=== PATIENT | female | born 1965 | race African-American/Black ===

== ENCOUNTER 2016-06-14 14:41 | Inpatient (IN) ==
[2016-06-14] MEDS ORDERED: MORPHINE 2 MG/1 ML SYRINGE IV PRN (14:45)
[2016-06-14] MEDS ORDERED: ACETAMINOPHEN 325 MG TABLET PO PRN ×2 (14:45)
[2016-06-14] MEDS ORDERED: DOCUSATE SODIUM 100 MG CAPSULE PO PRN (14:45)
[2016-06-14] MEDS: SODIUM CHLORIDE 0.9% 1,000 ML IV SCH (17:15)
[2016-06-14] MEDS ORDERED: PANTOPRAZOLE 40 MG VIAL IV ONE (17:43)
[2016-06-14] MEDS ORDERED: SODIUM CHLORIDE 0.9% 250 ML IV PRN (17:43)
--- NOTE | 2016-06-14 17:48 | Hospitalist History & Physical ---
Assessment and Plan - Time spent with patient Time spent with patient: Greater than 30 minutes (1) Acute blood loss anemia Status: Acute Assessment and plan: Patient has acute blood loss anemia secondary to GI bleed. Have consulted GI, begun IV proton pump inhibitor, and will transfuse to achieve a hemoglobin of 9- 10 with her underlying coronary disease. Current Visit: Yes (2) GI bleed Status: Acute Assessment and plan: Patient has evidence of upper GI bleed with acute blood loss anemia. She will be placed in the ICU and transfused to achieve a hemoglobin of 9-10. Will begin IV proton pump inhibitors and consult gastroenterology for possible upper endoscopy. Current Visit: Yes (3) UTI (urinary tract infection) Status: Acute Assessment and plan: Patient has evidence of UTI and [facility] We will continue for now and await cultures. Current Visit: Yes (4) Chest pain Status: Acute Assessment and plan: Patient has chest pain with recent coronary stenting. This is likely secondary to demand secondary to her severe blood loss anemia. Will transfuse, consult cardiology, obtain serial cardiac isoenzymes and EKGs. Current Visit: No (5) Diabetes Status: Chronic Assessment and plan: Patient has diabetes mellitus. Will continue her routine insulin dose with Accu -Cheks and sliding scale. Current Visit: No (6) Lupus Status: Chronic Assessment and plan: Patient has lupus and is on chronic corticosteroids. I will hold her n.p.o. for now and provide IV corticosteroids. Current Visit: No History of Present Illness Chief complaint: Chest pain History of present illness: Ms. Yeager is a 51 year old -[place] female who had coronary stent placement last week by Dr. Trent Major. She states that last evening she began having some anterior chest tightness. She has had some associated shortness of breath. She did note having some dark tarry stools and some midepigastric discomfort this morning. She has had some dizziness with standing and some shortness of breath with minimal exertion. There is been no nausea or vomiting. She was seen at an [facility] and evaluated and noted to have no acute EKG changes or elevation of cardiac isoenzymes however she was severely anemic with a hemoglobin of approximately 5. She was transferred here for further care. Home Medications Medication Instructions Recorded Confirmed Type Aspirin [Ecotrin] 325 mg PO DAILY 06/11/16 06/11/16 History Dicyclomine Cap/Tab [Bentyl 20 mg PO QID PRN 06/11/16 06/11/16 History Cap/Tab] Esomeprazole Magnesium [Nexium] 40 mg PO DAILY 06/11/16 06/11/16 History Glipizide [Glipizide Xl] 10 mg PO BID 06/11/16 06/11/16 History Hydromorphone HCl 8 mg PO BID PRN 06/11/16 06/11/16 History Hydroxychloroquine [Plaquenil] 200 mg PO BID 06/11/16 06/11/16 History Insulin Glargine [Lantus] 20 unit SUBCUT BEDTIME 06/11/16 06/11/16 History Levocetirizine Dihydrochloride 5 mg PO BEDTIME 06/11/16 06/11/16 History [Xyzal] Nicotine 14 mg/24 Hr Patch 1 patch TRANSDERM DAILY 06/11/16 06/11/16 History [Nicoderm CQ 14 mg/24 hr Patch] amLODIPine [Norvasc] 10 mg PO DAILY 06/11/16 06/11/16 History predniSONE TAB [PredniSONE] 10 mg PO BID 06/11/16 06/11/16 History Carvedilol [Coreg] 25 mg PO BID W/MEALS #60 tablet 06/12/16 Rx Losartan [Cozaar] 50 mg PO DAILY #30 tablet 06/12/16 Rx Ticagrelor [Brilinta] 90 mg PO BID #60 tablet 06/12/16 Rx Allergies Allergy/AdvReac Type Severity Reaction Status Date / Time No Known Allergies Allergy Verified 06/11/16 00:44 Medical,Surgical,& Family Hx - Medical History Cardio: History of: Cardiac Dysrhythmia, CHF, CAD, Hypertension Psychological: History of: Anxiety Disorders Endocrine: History of: Diabetes Mellitus (IDDM) Rheumatology: History of;: Systemic Lupus Erythematosus Respiratory: History of: Asthma, COPD - Surgical History Cardiac Surgeries: Sugical HX of: Cardiac Catheterization Abdominal Surgeries: Surgical HX of: Appendectomy Reproductive Surgeries: Surgical HX of;: Hysterectomy Orthopedic Surgeries: Surgical HX of;: Orthopedic Surgery - Family History Family History: Reports;: Family Cancer, Family Diabetes - Social History Smoking Status: Former smoker Frequency of Alcohol Use: None Type of Drug Use: None 12 point system: reviewed and no additional remarkable complaints except as stated Exam - Constitutional General appearance: mild distress - Head Head exam: Present: normocephalic, atraumatic - Eye Eye exam: Present: EOMI Pupils: Present: NAVJOT - ENT ENT exam: Present: normal oropharynx - Neck Neck exam: Present: normal inspection. Absent: lymphadenopathy, meningismus, tenderness, thyromegaly - Respiratory Respiratory exam: Present: clear to auscultation bilaterally. Absent: rales, rhonchi, wheezes - Cardiovascular Cardiovascular exam: Present: regular rate and rhythm, tachycardia. Absent: systolic murmur - GI/Abdominal GI/Abdominal exam: Present: normal bowel sounds, distended, tenderness ( Epigastric tenderness), soft. Absent: mass, rebound - Extremities Exam Extremities exam: Absent: calf tenderness, edema - Back Exam Back exam: Present: normal inspection - Neurological Exam Neurological exam: Present: alert, oriented X3, CN II-XII intact. Absent: motor sensory deficit - Psychiatric Psychiatric exam: Present: normal affect, normal mood. Absent: agitated, anxious - Skin Skin exam: Present: warm, dry. Absent: rash Results - Labs Lab Results: I have reviewed the past 24 hour labs Labs: Lab and radiologic data have been completely reviewed from the outlying hospital. Quality Measures - VTE Contraindication to Pharmacological VTE Prophylaxis: Already on Theraputic Agent , No Prophylaxis Needed
[2016-06-14] MEDS ORDERED: DEXTROSE 50% 25 GM/50 ML VIAL IV PRN (17:53)
[2016-06-14] MEDS ORDERED: GLUCAGON 1 MG VIAL IM PRN (17:53)
--- NOTE | 2016-06-14 18:25 | Cardiology Consult Note ---
Assessment and Plan - Time spent with patient Time spent with patient: Greater than 30 minutes Time spent discussing smoking cessation with patient: more than 10 minutes (1) Acute blood loss anemia Status: Acute Assessment and plan: Given she has black tarry stool, is most like an upper GI bleed. That is in spite of being on Nexium, presumably, at home. It probably is exacerbated by her Brilinta and aspirin, but these are important medications to use after stent is placed. Her chest pressure is most likely due to the anemia not due to other ischemia-- I doubt the stent has closed off or is causing problems at this time Plan/recommendation: Admit to ICU. I gave agree with considering giving blood. We will try to get hematocrit above 30. Above 30, I doubt that he will she will have this chest pain or dyspnea on exertion or even her near syncopal episode. If she does, rate we can reassess. For now, we have no choice but to hold the Brilinta and aspirin. Also will hold any medication which will lower her blood pressure. Agree with GI workup. They may proceed with upper and lower scope when needed. Cardiac isoenzymes. EKG every morning 3. I discussed with the patient the benefits of staying off tobacco/nicotine, the problems with restarting it, and options of treatment. The patient plans to continue to abstain from tobacco use. As soon as possible, we will try to get her back on the aspirin and Brilinta. If not both at least on aspirin. Prognosis is guarded with having to interrupt the antiplatelet therapy. Thank you for allowing me to participate in this patient's care Current Visit: Yes (2) Cigarette smoker Status: Acute Current Visit: Yes (3) Hypotension Status: Acute Current Visit: Yes (4) GI bleed Status: Acute Current Visit: Yes (5) UTI (urinary tract infection) Status: Acute Current Visit: Yes (6) Chest pain Status: Acute Current Visit: No (7) Status post insertion of drug-eluting stent into right coronary artery for coronary artery disease Status: Acute Current Visit: No (8) Diabetes Status: Chronic Current Visit: No (9) Lupus Status: Chronic Current Visit: No History of Present Illness - Data of Consult Patient: known to practice within the last 3 years Consult date: 06/14/16 Requesting Physician: Kris Patel - Consult Narrative Reason for consult: Evaluate chest pain, recent coronary artery stent History of present illness: Ms. Yeager is a 51 year old female The patient underwent cath last week. She was found to have a high-grade stenosis of the right coronary. She will underwent stenting with a 2.25 x 8 mm science stent. She did well. She tended towards hypotension so not much medication was given. She was discharged on Brilinta and aspirin . She went home on 12 June.. Today, she came back to the emergency room at [facility] in [facility]. Labs were checked. Her troponins were decreasing. Her hematocrit was about 15 mg percent, which is lower than when she left.. She is feeling lightheaded. Her blood pressure was low. She was sent here for evaluation. I was asked see her. She was having some chest pain but is slightly different from chest pain she had when she had her stent done. Is a slight pressure but not the same. Has dyspnea on exertion. Has orthopnea and PND. No edema, palpitations, syncope, cough wheezing or phlegm. She did notice some black tarry stools. Also blood pressures been low lately. She has continued not smoke for last 2 weeks. He says she want to continue off cigarettes. She has bilateral eye iritis. Lupus/smoker/tendency towards hypotension CC: Beverly Rivera MD - Home Medications and Allergies Home Medications: Home Medications Medication Instructions Recorded Confirmed Type Aspirin [Ecotrin] 325 mg PO DAILY 06/11/16 06/11/16 History Dicyclomine Cap/Tab [Bentyl 20 mg PO QID PRN 06/11/16 06/11/16 History Cap/Tab] Esomeprazole Magnesium [Nexium] 40 mg PO DAILY 06/11/16 06/11/16 History Glipizide [Glipizide Xl] 10 mg PO BID 06/11/16 06/11/16 History Hydromorphone HCl 8 mg PO BID PRN 06/11/16 06/11/16 History Hydroxychloroquine [Plaquenil] 200 mg PO BID 06/11/16 06/11/16 History Insulin Glargine [Lantus] 20 unit SUBCUT BEDTIME 06/11/16 06/11/16 History Levocetirizine Dihydrochloride 5 mg PO BEDTIME 06/11/16 06/11/16 History [Xyzal] Nicotine 14 mg/24 Hr Patch 1 patch TRANSDERM DAILY 06/11/16 06/11/16 History [Nicoderm CQ 14 mg/24 hr Patch] amLODIPine [Norvasc] 10 mg PO DAILY 06/11/16 06/11/16 History predniSONE TAB [PredniSONE] 10 mg PO BID 06/11/16 06/11/16 History Carvedilol [Coreg] 25 mg PO BID W/MEALS #60 tablet 06/12/16 Rx Losartan [Cozaar] 50 mg PO DAILY #30 tablet 06/12/16 Rx Ticagrelor [Brilinta] 90 mg PO BID #60 tablet 06/12/16 Rx Allergies/Adverse Reactions: Allergies Allergy/AdvReac Type Severity Reaction Status Date / Time No Known Allergies Allergy Verified 06/11/16 00:44 12 point system: reviewed and no additional remarkable complaints except as stated (A 12 point review of systems is negative except for as mentioned in HPI. ) Medical,Surgical,& Family Hx - Medical History Cardio: History of: Cardiac Dysrhythmia, CHF, CAD, Hypertension Psychological: History of: Anxiety Disorders Endocrine: History of: Diabetes Mellitus (IDDM) Rheumatology: History of;: Systemic Lupus Erythematosus Respiratory: History of: Asthma, COPD - Surgical History Cardiac Surgeries: Sugical HX of: Cardiac Catheterization Abdominal Surgeries: Surgical HX of: Appendectomy Reproductive Surgeries: Surgical HX of;: Hysterectomy Orthopedic Surgeries: Surgical HX of;: Orthopedic Surgery - Family History Family History: Reports;: Family Cancer, Family Diabetes - Social History Smoking Status: Former smoker Have you smoked in the last 12 months: Yes Time spent discussing smoking cessation with patient: 3 to 10 minutes Frequency of Alcohol Use: None Type of Drug Use: None Functional capacity: independent ambulation Physical Examination Vital Signs Temp Pulse Resp BP Pulse Ox 98.6 F 92 H 18 87/66 100 06/14/16 17:05 06/14/16 17:05 06/14/16 17:05 06/14/16 17:05 06/14/16 17:05 Other: HEENT: Pupils equal, reactive to light and accommodation Neck: NoJVD or bruit Lungs clear to auscultation Heart: Regular rhythm rate with normal S1 and S2. Apical S4, 2/6 systolic ejection murmur along left lower sternal border. Abdomen: No hepatosplenomegaly Spine/extremities: No clubbing, cyanosis, or edema Neuro: Nonfocal Psych: No depression or anxiety Right groin puncture site was well-healed. Other foot pulses are good/normal. Result/EKG - Labs Lab Results: I have reviewed the past 24 hour labs Labs: I reviewed her labs from [facility]. Her hematocrit is lower as is her troponin. Quality Measures - VTE Deep Vein Thrombosis/Pulmonary Embolism Present on Admission: No Contraindication to Pharmacological VTE Prophylaxis: Already on Theraputic Agent , No Prophylaxis Needed
--- NOTE | 2016-06-14 19:35 | Event Note ---
Procedure note Called for central line placement for IV access in a patient requiring transfusion of 2 units of packed red blood cells. Ms. art was admitted with acute blood loss anemia secondary to acute hemorrhage thought to be upper gastrointestinal in origin. She is on blood thinners. The patient was seen and examined. The site was marked. A timeout was taken. The patient's identity, procedure, consent and location were identified. The patient was prepped and draped in sterile fashion. Local anesthesia was given with 1% lidocaine plain. The internal jugular vein was accessed and the guide wire placed without difficulty. After using the tissue dilator, the triple lumen catheter was placed over the wire and the wire removed intact. All ports were flushed with normal saline and functioned well. The central line was secured with the enclosed suture. A chest x-ray was ordered to confirm placement. The patient tolerated the procedure well. The nurse will place the appropriate dressing according to the hospital protocols.
[2016-06-14] MEDS: methylPREDNISolone SOD SUC 40 MG/1 ML VIAL IV SCH (19:45)
[2016-06-14] MEDS: PANTOPRAZOLE INJ 200 MG in SODIUM CHLORIDE 0.9% 250 ML IV SCH (19:45)
[2016-06-14] MEDS: cefTRIAXone 1,000 MG in SODIUM CHLORIDE 0.9% 100 ML IV SCH (19:46)
[2016-06-14] MEDS: INSULIN REGULAR 100 UNIT/ML SUBCUT SCH (19:46)
--- NOTE | 2016-06-14 19:48 | XRay Report ---
XR chest 1V portable Indication: Line placement Comparison: Chest x-ray dated June 11, 2016 Technique: Single frontal view of the chest Findings: Right-sided central venous catheter tip projects over the distal SVC. Cardiomediastinal silhouette is stable in configuration. No focal consolidation, pleural effusion, or pneumothorax. Osseous and surrounding soft tissue structures appear grossly unchanged. IMPRESSION: No acute cardiopulmonary process demonstrated. PROCEDURE INTERPRETED AT [facility] DEPARTMENT OF RADIOLOGY Final Report Signed by: Dr Frederick Howard
[2016-06-14 20:11] LABS: Hematocrit 14.3 VOL% (35.7-47.0); Hemoglobin 4.6 GM/DL (12.0-16.0)
[2016-06-14] MEDS ORDERED: INSULIN GLARGINE 100 UNIT/ML SUBCUT SCH (21:00)
--- NOTE | 2016-06-14 21:30 | EKG Report ---
Stationary ECG Study [facility] Test Date: 06/14/2016 9:30:25 PM Pat Name: MIN HOGAN Department: Room: 112 Gender: F [employer]: LV : 1965 Requested by: Ruben Verduzco Order Number: [id number] Reading MD: SAHARA HERNANDES Intervals [place] Rate: 99 P: 65 MD: 150 QRS: 57 QRSD: 81 T: -23 QT: 330 QTc: 386 Interpretive Statements SINUS RHYTHM NONSPECIFIC T-WAVE ABNORMALITY Electronically Signed On 06-15-16 06:32:42 CDT by SAHARA HERNANDES [email or web address]
[2016-06-14] MEDS: HYDROXYCHLOROQUINE 200 MG TABLET PO SCH (22:13)
--- NOTE | 2016-06-15 00:26 | EKG Report ---
Stationary ECG Study [facility] Test Date: 06/15/2016 12:26:41 AM Pat Name: MIN HOGAN Department: Room: 112 Gender: F [employer]: [place] : 1965 Requested by: Ruben Verduzco Order Number: [id number] Reading MD: SAHARA HERNANDES Intervals [place] Rate: 91 P: 61 NC: 161 QRS: 69 QRSD: 81 T: -65 QT: 343 QTc: 392 Interpretive Statements SINUS RHYTHM MODERATE T-WAVE ABNORMALITY, CONSIDER LATERAL ISCHEMIA Electronically Signed On 06-15-16 06:33:39 CDT by SAHARA HERNANDES [id number]
[2016-06-15] MEDS: INSULIN REGULAR 100 UNIT/ML SUBCUT SCH ×4 (00:44→19:32)
[2016-06-15] MEDS: SODIUM CHLORIDE 0.9% 1,000 ML IV SCH ×3 (02:12→15:01)
[2016-06-15 04:12] LABS: Basophils % 0.1 % (0.0-0.8); Hematocrit 26.4 VOL% (35.7-47.0); Hemoglobin 8.3 GM/DL (12.0-16.0); Immature Granulocytes Absolute 0.15 #; Lymphocytes # 1.2 10*3/uL (1.4-4.0); Lymphocytes % 8.4 % (21.3-54.2); Mean Corpuscular HGB Conc 31.4 GM/DL (32-36); Mean Corpuscular Hemoglobin 29 PG (27-34); Mean Platelet Volume 10.3 FL (9.6-12.0); Monocytes # 0.3 10*3/uL (0.11-0.8); Monocytes % 1.7 % (1.7-12.7); Neutrophils % 88.8 % (38.7-73.9); Platelet Count 147 T/CUMM (130-400); Red Blood Count 2.87 MC/CUMM (3.8-5.5); Red Cell Distribution Width 14.2 % (9.3-17.3); White Blood Count 14.7 T/CUMM (4-12)
[2016-06-15 04:49] LABS: Calcium 7.9 MG/DL (8.5-10.1); Magnesium 1.7 MG/DL (1.8-2.4); Osmolality,Calculated 310.1 MOS/KG (273-304); Potassium 4.4 MMOL/L (3.5-5.1)
[2016-06-15 04:54] LABS: CKMB % 10.2 %; Troponin I Only 0.057 NG/ML (0.00-0.045)
[2016-06-15] MEDS: methylPREDNISolone SOD SUC 40 MG/1 ML VIAL IV SCH ×2 (06:07→18:00)
--- NOTE | 2016-06-15 06:29 | Gastrointestinal Consult Note ---
Assessment and Plan (1) Gastrointestinal hemorrhage with melena Status: Acute Assessment and plan: This patient has recent stent placement for right coronary artery disease. She was released on a combination of aspirin and Brilinta and developed melena as an outpatient with hematocrit drop from 26% to 14.6%. This being said, the patient also had periumbilical pain and diarrhea prior to coming in with a weight loss of some 30 pounds even prior to stent placement. I am concerned that there may be more than 1 source of bleeding in this patient--we will probably want to follow the upper endoscopy with a colonoscopy on 06/16/16 given the above concerns. Differential diagnosis considering the patient has dysphasia or several including esophageal and gastric cancer but also esophagitis, gastritis, peptic ulcer disease, duodenitis and sprue. She likely has some anemia secondary to chronic disease with her lupus as well. We will proceed with upper endoscopy today in order to evaluate that portion of her GI tract and follow this with colonoscopy tomorrow as mentioned. Risks of the procedure include but are not limited to: Bleeding, infection, perforation, cardiac and pulmonary compromise with cardiac difficulties being higher now that she has been stented and is off of anticoagulation. The patient understands and is willing to proceed. Current Visit: Yes (2) Dysphagia Status: Acute Assessment and plan: Patient states that food gets stuck in her distal esophagus and if we discover a stricture we will likely dilate in order to ensure that she has good swallowing capabilities in the future now that she is off of anticoagulation for the short-term. If there is esophageal cancer we will likely take biopsies and refer for appropriate treatment. Current Visit: Yes (3) Periumbilical pain Status: Acute Assessment and plan: The patient has been having periumbilical pain for over a month and has had a 30 pound weight loss during that period as well. She has been told that she has diverticulosis in the past which probably has little bearing on her current situation. She may have C. difficile or some other type of colitis with her may be ischemic colitis especially given her likely propensity to her vascular difficulties with her lupus. We will likely proceed with colonoscopy tomorrow to follow the upper endoscopy today. Hopefully this will be normal. She is 1 year out from needing screening anyway. Current Visit: Yes (4) Diarrhea Status: Acute Assessment and plan: I am going to be checking the patient for C. difficile, fecal white blood cells and standard stool cultures to see if we can find a source for this diarrhea. With 3-5 bowel movements per day this may simply be irritable bowel syndrome. Ischemic colitis remains in the differential particularly given the current anemia and lupus history. Current Visit: Yes History of Present Illness Chief complaint: Melena and decr. HCT 14.3/4.6, dysphagia, reflux, nausea/ vomiting History of present illness: Ms. Yeager is a 51 year old female who has a history of a 30 pound weight loss over the last 1 month with nausea and vomiting as well as some dysphasia prior to coming in with atypical chest pain for right coronary lesion that required stenting by Dr. Major on 06/11/16. The patient has a history of lupus and went home on a combination of Ecotrin/Brilinta/prednisone/Plaquenil and was also taking NicoDerm for her underlying tobacco addiction. Tuesday evening one day prior to her admission she became quite lightheaded and had 2 black stools, presenting yesterday with more chest pain and extreme anemia with hematocrit down to 14.3% with a hemoglobin of 4.6 g/dL. In addition the patient's BUN and creatinine were 43 and 1.3. She knows that she has diverticulosis but has never undergone colonoscopy or EGD in the past. She is having reflux for many years and this is characterized as being quite severe. She does have some abdominal pain in the periumbilical region she grades as being 9 out of 10 at times with a crampy achy sort of character and has noted diarrhea since 05/27/16 with 3-5 bowel movements per day. She does not have a history of sick contacts. She has had nausea and vomiting with clear emesis but no coffee grounds. She does experience dysphagia frequently with food getting stuck in the lower esophagus, usually on a weekly basis. She typically takes Nexium before bedtime at night to help deal with the reflux which she again characterized as being severe. Her primary doctor is Dr. Cheryl Marroquin. She does not typically imbibe in alcohol, she has no history of IV drug use. She takes a full aspirin each day as her usual anticoagulation aside from the new addition of Brilinta since her cardiac catheterization. Home Medications Medication Instructions Recorded Confirmed Type Aspirin [Ecotrin] 325 mg PO DAILY 06/11/16 06/11/16 History Dicyclomine Cap/Tab [Bentyl 20 mg PO QID PRN 06/11/16 06/11/16 History Cap/Tab] Esomeprazole Magnesium [Nexium] 40 mg PO DAILY 06/11/16 06/11/16 History Glipizide [Glipizide Xl] 10 mg PO BID 06/11/16 06/11/16 History Hydromorphone HCl 8 mg PO BID PRN 06/11/16 06/11/16 History Hydroxychloroquine [Plaquenil] 200 mg PO BID 06/11/16 06/11/16 History Insulin Glargine [Lantus] 20 unit SUBCUT BEDTIME 06/11/16 06/11/16 History Levocetirizine Dihydrochloride 5 mg PO BEDTIME 06/11/16 06/11/16 History [Xyzal] Nicotine 14 mg/24 Hr Patch 1 patch TRANSDERM DAILY 06/11/16 06/11/16 History [Nicoderm CQ 14 mg/24 hr Patch] amLODIPine [Norvasc] 10 mg PO DAILY 06/11/16 06/11/16 History predniSONE TAB [PredniSONE] 10 mg PO BID 06/11/16 06/11/16 History Carvedilol [Coreg] 25 mg PO BID W/MEALS #60 tablet 06/12/16 Rx Losartan [Cozaar] 50 mg PO DAILY #30 tablet 06/12/16 Rx Ticagrelor [Brilinta] 90 mg PO BID #60 tablet 06/12/16 Rx Allergies Allergy/AdvReac Type Severity Reaction Status Date / Time No Known Allergies Allergy Verified 06/11/16 00:44 Medical,Surgical,& Family Hx - Medical History Cardio: History of: Cardiac Dysrhythmia, CHF, CAD, Hypertension Psychological: History of: Anxiety Disorders Endocrine: History of: Diabetes Mellitus (IDDM) Rheumatology: History of;: Systemic Lupus Erythematosus Respiratory: History of: Asthma, COPD - Surgical History Cardiac Surgeries: Sugical HX of: Cardiac Catheterization Abdominal Surgeries: Surgical HX of: Appendectomy Reproductive Surgeries: Surgical HX of;: Hysterectomy Orthopedic Surgeries: Surgical HX of;: Orthopedic Surgery - Family History Family History: Reports;: Family Cancer, Family Diabetes - Social History Smoking Status: Former smoker Frequency of Alcohol Use: None Type of Drug Use: None Review of systems: Constitutional: Denies fever, chills, but positive for recent nausea, and vomiting of clear material Eyes: Denies dry eyes, and scleral icterus HENT: Denies headaches Cardiovascular: She has had some recent acute chest pain but no claudication Respiratory: Mild shortness of breath, but no wheezing, or difficulty breathing, denies cough Gastrointestinal: As noted in the HPI Genitourinary: Denies dysuria and hematuria Neurologic: Denies vision loss, and loss of sensation Musculoskeletal: The patient has lupus and does admit to joint swelling, joint stiffness, and muscular weakness Psychiatric: Denies depression and jake symptoms Heme-Lymph: She does have easy bruising, but no lymph node enlargement or tenderness, night sweats, but does have some recent excessive bleeding Allergies-immunologic: Denies pruritus and rhinorrhea Exam - Constitutional Vitals: Period Temp Pulse Resp BP Sys/Grider Pulse Ox Last 24 Hr 97.5 F-99.1 F 71-117 13-29 87-131/60-82 100-100 General appearance: no acute distress Exam: Constitutional: Well-developed, well-nourished, alert, and in no acute distress Head and face: Head: Normocephalic atraumatic Eyes: Conjunctiva without injection, no gross scleral icterus, pupils equal and round bilaterally--early cataracts are noted bilaterally Ears: Intact to conversation in both ears Nose: External appearance is normal, nares patent Mouth: Oral mucous membranes moist without erythema dentition noted to be without erosion--multiple teeth are missing especially in the premolar area Neck: Normal appearance, no masses or tenderness, trachea midline Thyroid: Gland midline and appropriate size for age Respiratory: Normal respiratory effort, clear to auscultation without wheezes, rhonchi or rales Cardiovascular: Regular rate and rhythm, normal S1, S2, the exam is without rubs, murmurs or gallops. Gastrointestinal: Moderate periumbilical tenderness to palpation, normal active bowel sounds, tone normal without rigidity or guarding, no masses present , no hepatomegaly, no spleen tip felt. Multiple scars are noted in the midline and Pfannenstiel and right lower quadrant areas. Rectal exam demonstrated good tone small internal hemorrhoids, a great deal of rectal air, stool was dark brown and grossly guaiac positive. Lymphatic: Neck without adenopathy, axilla without lymphadenopathy present Musculoskeletal: Right and left lower extremities without evidence of edema Skin and subcutaneous tissue: No rashes or ulcerations noted, normal skin turgor, digits and nails without clubbing/cyanosis/deformities. Abdominal striae are noted concerning for recent weight loss. Neurologic: The patient is grossly oriented to person place and time, cranial nerves show tongue movements are normal with normal tongue extrusion midline, light touch sensation is intact. Psychiatric: No hallucinations or delusions are present, does not appear depressed Results - Labs CBC & BMP: 06/15/16 04:00 06/15/16 04:00 Quality Measures - VTE Deep Vein Thrombosis/Pulmonary Embolism Present on Admission: No Contraindication to Pharmacological VTE Prophylaxis: Already on Theraputic Agent , No Prophylaxis Needed
--- NOTE | 2016-06-15 08:02 | EKG Report ---
Stationary ECG Study [facility] Test Date: 06/15/2016 8:02:09 AM Pat Name: MIN HOGAN Department: Room: 112 Gender: F Nurse Substance Abuse: DEJUAN : 1965 Requested by: Nikki Scott Order Number: [id number] Reading MD: JACQUELINE RITCHIE Intervals [place] Rate: 67 P: 31 MS: 141 QRS: 11 QRSD: 90 T: 186 QT: 405 QTc: 420 Interpretive Statements SINUS RHYTHM MODERATE T-WAVE ABNORMALITY, CONSIDER LATERAL ISCHEMIA Electronically Signed On 06-16-16 20:48:08 CDT by JACQUELINE RITCHIE [email or web address]
[2016-06-15] MEDS ORDERED: PROPOFOL 200 MG/20 ML VIAL IV ONE (08:26)
[2016-06-15] MEDS ORDERED: LIDOCAINE 2% 5 ML VIAL ONE (08:26)
--- NOTE | 2016-06-15 08:43 | Physician Query Form ---
CLICK EDIT DOCUMENT TO SELECT QUERY ANSWER --> OK --> SIGN Sharlene Mendoza RN, CCDS Certified Clinical Assembly Leader W) [phone] (f) [phone] [email or web address] PROVIDERS: Make your selection(s) from the choices in EACH section by typing an "x" and enter comments in the comment section. Please use your independent medical judgment in providing your response. This request does not imply that any particular answer is desired or expected. CLINICAL INDICATORS: (Providers should not edit this section) The medical record indicates that the patient was admitted with GI bleeding, "probably is exacerbated by her Brilinta and aspirin", "Status post insertion of drug-eluting stent into right coronary artery for coronary artery disease" and she was discharged on "12 June". Based on the above, could you clarify the appropriate diagnosis, if significant , that supports the above abnormalities and additional evaluation, monitoring, and/or treatment rendered: ( ) Status post insertion of drug-eluting stent into right coronary artery for coronary artery disease / with LA associated on June 11 admission ( x) Status post insertion of drug-eluting stent into right coronary artery for coronary artery disease / without LA associated on June 11 Admission ( ) Other, please specify: ( ) Clinically unable to determine COMMENTS: Use of terms such as suspected, likely, or probable (associated with a specific diagnosis that is being evaluated, monitored, or treated as if it exists) are acceptable and can be restated in the discharge summary if not ruled out. MTDD
--- NOTE | 2016-06-15 08:54 | Operative Note ---
Date of procedure: 06/15/16 Pre-op diagnosis: Anemia, dysphagia, nausea/vomiting, 30 pound weight loss Post-op diagnosis: other (Weeping ulcer noted in the stomach possibly due to the NSAID use in the past (single 325 mg aspirin per day), this area was injected with epinephrine and cauterized with BiCAP cautery for hemostasis. This patient also was dilated to 57 [place]ones[place] by single pass Savary dilator given the absence of her anticoagulation and her dysphagia with reflux. There appear to be a mild gastritis noted as well that was biopsied. Observe hematocrit and while we have the patient off anticoagulation proceed with colonoscopy to rule out a second source of bleeding given the severe drop in her hematocrit seen previously to 14.6%.) Procedure: PROCEDURE: Esophagogastroduodenoscopy (EGD) with cold biopsy for pathology , epinephrine injection/BiCAP cautery for hemostasis and dilation to 57 Gabonese by single pass Savary dilator REFERRING PHYSICIAN: Beverly Rivera MD INDICATIONS: 30 pound weight loss in the last 1 month, nausea/vomiting, melena recently, cardiac catheterization with Brilinta/aspirin and drop in hematocrit of 26%-->14.6% after that procedure on 06/11/16. The prior H&P was reviewed and interrim changes are as noted: No change from GI consultation today. ENDOSCOPIST: Mark Ortez MD ENDOSCOPE: Olympus Video 100 System upper endoscope ASA CLASS: 4E EXAM: CV: regular rate and rhythm respiratory: Clear without wheezes abdominal: active bowel sounds MEDICATION: Per nursing anesthesia protocol, see their notes PROCEDURE: After discussion of the potential risks and benefits of upper endoscopy, the informed consent was obtained. The patient was then placed in the left lateral decubitus position where sedation was achieved as noted above. Esophageal intubation was performed without difficulty, and the endoscope was advanced through the esophagus, stomach and duodenum. A slow withdrawal was then performed with retroflexion in the stomach for careful inspection of the incisura angularis, fundus and cardia. The scope was then returned to a neutral position and withdrawn through the esophagus. The patient tolerated the procedure well and without complication. BIOPSIES: Gastric antrum/body (1 bite each) PHOTOGRAPHS: Obtained FINDINGS: Hypopharynx and Larynx: Normal Esohagoscopy Upper and middle thirds: Normal Lower third normal Esophogastric junctions: No gross evidence of stricturing this area easily dilated with 57 [place]onese by single pass Savary dilator with no resistance and a scant amount of heme noted on the dilator Gastroscopy: Cardia/Fundus: Heme noted in the stomach pooling in the fundus which appear to be coming from the antral ulcer noted. Body: Heme noted in this area with mild patchy nonerosive gastritis, single biopsy taken Antrum and pylorus prepyloric 1.3 cm ulcer noted with a central vessel that appeared to be oozing a small amount of blood actively--this was injected with a total of 4 cc of epinephrine 1:10,000 solution and then 2 applications of 15 W BiCAP cautery for several seconds used to cauterize the bleeding vessel with good hemostasis noted post procedure. A single small biopsy was taken of the tissue away from this area to look for Helicobacter pylori. Wire placed in this area at the end of the case in order to facilitate Savary dilation above. Duodenoscopy: Bulb normal Second and third portions: Normal, no biopsies for sprue IMPRESSION: Weeping ulcer noted in the stomach possibly due to the NSAID use in the past (single 325 mg aspirin per day), this area was injected with epinephrine and cauterized with BiCAP cautery for hemostasis. This patient also was dilated to 57 [place]ones[place] by single pass Savary dilator given the absence of her anticoagulation and her dysphagia with reflux. There appear to be a mild gastritis noted as well that was biopsied. Observe hematocrit and while we have the patient off anticoagulation proceed with colonoscopy to rule out a second source of bleeding given the severe drop in her hematocrit seen previously to 14.6%. RECOMMENDATIONS: Follow up for biopsy results in 1-2 weeks by phone [phone] Continue anti-gastroesophageal reflux measures (avoid carbonated and acidic beverages, avoid eating within 2 hours of bedtime, avoid tight fitting clothing , and elevate the front bed posts 6 inches prior to sleeping. The patient should remain off of her anticoagulation briefly until we can complete colonoscopy tomorrow. In an ideal world we would leave this patient off of her anticoagulation for 2 months but given her recent stenting we may have to start Lovenox in the next day or 2, post colonoscopy. Mark Ortez MD COPY TO: Beverly Rivera MD Anesthesia: MAC Surgeon / Physician: Mark Ortez Estimated blood loss: minimal Specimens: other (Gastric antrum/body) Condition: stable Disposition: ICU (G.I. Suite) Results - Labs CBC & BMP: 06/15/16 04:00 06/15/16 04:00 Discharge Plan - Discharge Medications No Action Nicotine 14 mg/24 Hr Patch [Nicoderm CQ 14 mg/24 hr Patch] 1 patch TRANSDERM DAILY Levocetirizine Dihydrochloride [Xyzal] 5 mg PO BEDTIME Insulin Glargine [Lantus] 20 unit SUBCUT BEDTIME Aspirin [Ecotrin] 325 mg PO DAILY Hydromorphone HCl 8 mg PO BID PRN PRN Reason: Pain Moderate To Severe (4-10) Dicyclomine Cap/Tab [Bentyl Cap/Tab] 20 mg PO QID PRN PRN Reason: Constipation predniSONE TAB [PredniSONE] 10 mg PO BID Hydroxychloroquine [Plaquenil] 200 mg PO BID amLODIPine [Norvasc] 10 mg PO DAILY Glipizide [Glipizide Xl] 10 mg PO BID Carvedilol [Coreg] 25 mg PO BID W/MEALS #60 tablet Ticagrelor [Brilinta] 90 mg PO BID #60 tablet Esomeprazole Magnesium [Nexium] 40 mg PO DAILY Losartan [Cozaar] 50 mg PO DAILY #30 tablet - Follow Up or Referral - Forms/Instructions
--- NOTE | 2016-06-15 08:55 | Anesthesia ---
Anesthesia Post OP - Post Ansesthetic Evaluation Patient seen in post op: Yes Resp: within normal limits CV: within normal limits Mental: within normal limits Temp: within normal limits [id number]: within normal limits Nausea and Vomiting: within normal limits Pain: within normal limits
[2016-06-15] MEDS ORDERED: PANTOPRAZOLE 40 MG TABLET PO SCH (09:00)
[2016-06-15] MEDS ORDERED: MAGNESIUM SULF RIDER 2 GM in PREMIX 1 EACH IV ONE (09:28)
[2016-06-15] MEDS: HYDROXYCHLOROQUINE 200 MG TABLET PO SCH ×2 (12:00→20:59)
[2016-06-15] MEDS: BISACODYL 5 MG TABLET PO SCH ×3 (12:00→22:40)
[2016-06-15 12:39] LABS: Hematocrit 29.3 VOL% (35.7-47.0); Hemoglobin 9.6 GM/DL (12.0-16.0)
--- NOTE | 2016-06-15 16:19 | Hospitalist Progress Note ---
Exam - Constitutional Vitals: Period Temp Pulse Resp BP Sys/Grider Pulse Ox Last 24 Hr 96.7 F-99.1 F 71-117 13-29 87-174/60-117 96-100 Results - Labs CBC & BMP: 06/15/16 12:07 06/15/16 04:00 Quality Measures - VTE Deep Vein Thrombosis/Pulmonary Embolism Present on Admission: No Contraindication to Pharmacological VTE Prophylaxis: Already on Theraputic Agent , No Prophylaxis Needed
--- NOTE | 2016-06-15 16:30 | Hospitalist Progress Note ---
Assessment and Plan (1) Acute blood loss anemia Status: Acute Assessment and plan: 1)ABLA due to UGIB- ulcer injected, no sign of rebleed at this point. on IV PPI. transfused on arrival and H&H came up as expected. serial H&H. 2)recent cardiac stent- plavix held due to bleeding until after cscope. 3)UTI- treatment started at outlying facility, UA with evidnece of UTI. Culture pending, on ceftriaxone in the meantime 4)lupus- chronic steroids 5)DM- SSI Current Visit: Yes (2) Cigarette smoker Status: Acute Current Visit: Yes (3) Hypotension Status: Acute Current Visit: Yes (4) Gastrointestinal hemorrhage with melena Status: Acute Current Visit: Yes (5) S/P right coronary artery (RCA) stent placement Status: Acute Current Visit: Yes Hospitalist: Subjective Interval history: Mrs Yeager is feeling well after her EGD. She understands that Dr Ortez saw an ulcer and is agreeable with cscope tomorrow. No shortness of breath, no chest pain. Exam - Constitutional Vitals: Period Temp Pulse Resp BP Sys/Grider Pulse Ox Last 24 Hr 96.7 F-99.1 F 71-117 13-29 87-174/60-117 96-100 General appearance: normal weight, no acute distress - Head Head exam: Present: normocephalic, atraumatic - Eye Eye exam: Present: EOMI. Absent: scleral icterus - Respiratory Respiratory exam: Present: clear to auscultation bilaterally - Cardiovascular Cardiovascular exam: Present: regular rate and rhythm - GI/Abdominal GI/Abdominal exam: Present: normal bowel sounds, soft. Absent: tenderness - Extremities Exam Extremities exam: Absent: edema Results - Labs CBC & BMP: 06/15/16 12:07 06/15/16 04:00 Lab Results: I have reviewed the past 24 hour labs Quality Measures - VTE Deep Vein Thrombosis/Pulmonary Embolism Present on Admission: No Contraindication to Pharmacological VTE Prophylaxis: Already on Theraputic Agent , No Prophylaxis Needed
--- NOTE | 2016-06-15 17:30 | Cardiology Progress Note ---
Dennis Connor Vanessa RN, am scribing for, and in the presence of, Reji Biggs MD 17:30. Assessment and Plan - Time spent with patient Time spent with patient: Less than 30 minutes (1) S/P right coronary artery (RCA) stent placement Status: Acute Assessment and plan: 06/15/16: Underwent successful PCI of mid right coronary artery using a 2.25 x 8 mm Xience drug-eluting stent on 06/11/16. Dual antiplatelet therapy was initiated using Brilinta and aspirin. Due to significant GI bleed and anemia, antiplatelet therapy is currently being held. Monitor closely for signs or symptoms of ACS. Hopefully can resume these in the near future after further GI workup and improvement of anemia and GI bleed. I conferred care with Dr. Tang thru the nurse. We will not restart the aspirin and Brilinta now We will see what the colon scope shows tomorrow then decide So far, hemodynamically she is fairly stable She will not need to have Lovenox, as mentioned, but needs the Brilinta or aspirin, at least. I conferred care with her nurse Current Visit: Yes (2) Gastrointestinal hemorrhage with melena Status: Acute Assessment and plan: Acute onset of melena, black tarry stools on Tuesday. Significant anemia with H& H of 4.6 and 14.3. Receiving 2 units packed red blood cells. Gastroenterology has been consulted, and Dr. Ortez has seen patient. EGD is planned for today with colonoscopy to follow tomorrow. Current Visit: Yes (3) Acute blood loss anemia Status: Acute Assessment and plan: Monitor H&H closely. Continue to hold antiplatelet medications. Blood transfusion as needed. Monitor vital signs closely. Current Visit: Yes (4) Chest pain Status: Acute Assessment and plan: This is resolved, and she denies chest pain this morning. Twelve-lead EKG and blood work negative for findings of ACS or other cardiac ischemia. Chest pain most likely related to significant anemia and volume depletion. Current Visit: No (5) Hypomagnesemia Status: Acute Assessment and plan: Magnesium level 1.7 today. Will replete with MagSulfate 2 gm IVPB. Current Visit: Yes (6) Hypertension Status: Chronic Assessment and plan: This is well controlled at this time. She tends to be hypotensive at times. No antihypertensives are part of medication regimen currently. Will monitor. Current Visit: No (7) Cigarette smoker Status: Acute Assessment and plan: She was recently discharged from hospital with Beanm. Tobacco cessation and benefits of it has been emphasized. Current Visit: Yes (8) Diarrhea Status: Acute Current Visit: Yes (9) Dysphagia Status: Acute Current Visit: Yes (10) Diabetes Status: Chronic Current Visit: No (11) Lupus Status: Chronic Current Visit: No Cardiology - PN: Subj Interval history: Patient is under close observation in ICU this morning. She is awake and alert in no acute distress. Denies CP, SOB, dizziness, palpitation, presyncope. Only complaint is being hungry. Significant anemia due to GI blood loss yesterday with H/H 4.6&14.3 upon admission. Receiving PRBC's. This morning, H/H is improved to 8.3&26.4. Gastroenterology has been consulted regarding anemia accompanied with recent melena, dysphagia, umbilical pain, and recent significant weight loss. EGD is scheduled for later today with colonoscopy to follow tomorrow. Afebrile, blood pressure stable with SBP 105-125 mmHg. Sinus rhythm per cardiac monitoring without acute EKG change or ectopy seen. Potassium is 4.4. Slightly hypomagnesemic at 1.7. Exam (Progress Note) - Constitutional Vitals: Period Temp Pulse Resp BP Sys/Grider Pulse Ox Last 24 Hr 96.7 F-99.1 F 71-117 13-29 87-131/60-84 99-100 General appearance: normal weight, no acute distress - Head Head exam: Absent: abrasion, contusion - Eye Eye exam: Absent: periorbital swelling Pupils: Present: NAVJOT - ENT ENT exam: Present: normal external ear exam - Neck Neck exam: Absent: tenderness - Respiratory Respiratory exam: Present: clear to auscultation bilaterally. Absent: accessory muscle use, chest wall tenderness, rales, rhonchi, stridor, wheezes - Cardiovascular Cardiovascular exam: Present: regular rate and rhythm. Absent: bradycardia, carotid bruit, irregular rhythm, systolic murmur, tachycardia - GI/Abdominal GI/Abdominal exam: Present: hypoactive bowel sounds, soft. Absent: ascites, distended, firm, tenderness - Rectal Rectal Exam: black stool (Per patient report) - Extremities Exam Extremities exam: Present: normal capillary refill, full ROM. Absent: calf tenderness, edema - Back Exam Back exam: Present: normal inspection - Neurological Exam Neurological exam: Present: alert, oriented X3 - Psychiatric Psychiatric exam: Present: normal affect, normal mood. Absent: agitated, anxious - Skin Skin exam: Present: warm, dry, intact. Absent: cyanosis, diaphoretic, rash Result/EKG - Labs CBC & BMP: 06/15/16 12:07 06/15/16 04:00 Lab Results: I have reviewed the past 24 hour labs Labs: Laboratory Results - last 24 hr 06/14/16 06/14/16 06/14/16 19:50 19:50 19:50 WBC RBC Hgb 4.6 L* D Hct 14.3 L* D MCV MCH MCHC RDW Plt Count MPV Neut % (Auto) Lymph % (Auto) [place] % (Auto) Eos % (Auto) Baso % (Auto) Neut # (Auto) Lymph # (Auto) [place] # (Auto) Eos # (Auto) Baso # (Auto) Immature Gran % Nucleated RBC % Immature Gran # Nucleated RBCs # Sodium Potassium Chloride Carbon Dioxide Anion Gap BUN Creatinine GFR Calculation BUN/Creatinine Ratio Glucose POC Glucose Calculated Osmolality Calcium Magnesium Total Creatine Kinase CK-MB (CK-2) CK and CKMB Interp Troponin I 0.052 H D B-Natriuretic Peptide Blood Type O POSITIVE Antibody Screen Negative Crossmatch See Detail 06/14/16 06/15/16 06/15/16 Unknown 00:41 04:00 WBC 14.7 H D RBC 2.87 L Hgb 8.3 L D Hct 26.4 L MCV 92.0 MCH 29 MCHC 31.4 L RDW 14.2 Plt Count 147 D MPV 10.3 Neut % (Auto) 88.8 H Lymph % (Auto) 8.4 L [place] % (Auto) 1.7 Eos % (Auto) 0.0 Baso % (Auto) 0.1 Neut # (Auto) 13.0 H Lymph # (Auto) 1.2 L [place] # (Auto) 0.3 Eos # (Auto) 0.0 Baso # (Auto) 0.0 Immature Gran % 1.0 Nucleated RBC % 0.0 Immature Gran # 0.15 Nucleated RBCs # 0.00 Sodium Potassium Chloride Carbon Dioxide Anion Gap BUN Creatinine GFR Calculation BUN/Creatinine Ratio Glucose POC Glucose 106 Calculated Osmolality Calcium Magnesium Total Creatine Kinase CK-MB (CK-2) CK and CKMB Interp Troponin I B-Natriuretic Peptide Blood Type O POSITIVE Antibody Screen Crossmatch 06/15/16 06/15/16 06/15/16 04:00 04:00 04:00 WBC RBC Hgb Hct MCV MCH MCHC RDW Plt Count MPV Neut % (Auto) Lymph % (Auto) [place] % (Auto) Eos % (Auto) Baso % (Auto) Neut # (Auto) Lymph # (Auto) [place] # (Auto) Eos # (Auto) Baso # (Auto) Immature Gran % Nucleated RBC % Immature Gran # Nucleated RBCs # Sodium 149 H Potassium 4.4 Chloride 120 H Carbon Dioxide 16 L Anion Gap 17.4 H BUN 43 H Creatinine 1.30 H GFR Calculation 54 BUN/Creatinine Ratio 33.00 H Glucose 170 H POC Glucose Calculated Osmolality 310.1 H Calcium 7.9 L Magnesium 1.7 L Total Creatine Kinase 50 D CK-MB (CK-2) 5.1 H CK and CKMB Interp 10.2 Troponin I 0.057 H B-Natriuretic Peptide 75 Blood Type Antibody Screen Crossmatch 06/15/16 05:25 WBC RBC Hgb Hct MCV MCH MCHC RDW Plt Count MPV Neut % (Auto) Lymph % (Auto) [place] % (Auto) Eos % (Auto) Baso % (Auto) Neut # (Auto) Lymph # (Auto) [place] # (Auto) Eos # (Auto) Baso # (Auto) Immature Gran % Nucleated RBC % Immature Gran # Nucleated RBCs # Sodium Potassium Chloride Carbon Dioxide Anion Gap BUN Creatinine GFR Calculation BUN/Creatinine Ratio Glucose POC Glucose 117 H Calculated Osmolality Calcium Magnesium Total Creatine Kinase CK-MB (CK-2) CK and CKMB Interp Troponin I B-Natriuretic Peptide Blood Type Antibody Screen Crossmatch - Diagnostic Findings Procedure: Chest x-ray: image reviewed by me, report reviewed by me (06/14/16: No acute cardiopulmonary process) - EKG EKG results: interpreted by me, no acute changes EKG shows: sinus rhythm (Pulse rate is in the 80s without ectopy or arrhythmia) Quality Measures - VTE Deep Vein Thrombosis/Pulmonary Embolism Present on Admission: No Contraindication to Pharmacological VTE Prophylaxis: Already on Theraputic Agent , No Prophylaxis Needed Dian Connor Dale, MD, personally performed the services described in this documentation, ascribed by Kellen Collins RN in my presence, and it is both accurate and complete 730 .
[2016-06-15] MEDS ORDERED: POLYETHYLENE GLYCOL POWDER 255 GM BOTTLE PO ONE (18:00)
[2016-06-15] MEDS: cefTRIAXone 1,000 MG in SODIUM CHLORIDE 0.9% 100 ML IV SCH (18:00)
[2016-06-15 19:47] LABS: Hematocrit 28.5 VOL% (35.7-47.0); Hemoglobin 9.5 GM/DL (12.0-16.0)
[2016-06-15] MEDS: ONDANSETRON 4 MG/2 ML VIAL IV PRN (20:59)
[2016-06-15] MEDS: PANTOPRAZOLE INJ 200 MG in SODIUM CHLORIDE 0.9% 250 ML IV SCH (20:59)
[2016-06-16] MEDS: SODIUM CHLORIDE 0.9% 1,000 ML IV SCH ×2 (00:05→10:11)
[2016-06-16] MEDS: INSULIN REGULAR 100 UNIT/ML SUBCUT SCH ×5 (00:06→22:01)
[2016-06-16 00:13] LABS: Hematocrit 28.4 VOL% (35.7-47.0); Hemoglobin 9.2 GM/DL (12.0-16.0)
[2016-06-16] MEDS ORDERED: MAGNESIUM CITRATE 300 ML BOTTLE PO ONE (00:41)
[2016-06-16] MEDS ORDERED: MAGNESIUM CITRATE 300 ML BOTTLE ONE (00:57)
[2016-06-16] MEDS: ONDANSETRON 4 MG/2 ML VIAL IV PRN (02:58)
[2016-06-16 05:45] LABS: Hematocrit 29.4 VOL% (35.7-47.0); Hemoglobin 9.7 GM/DL (12.0-16.0)
--- NOTE | 2016-06-16 09:18 | Operative Note ---
Date of procedure: 06/16/16 Pre-op diagnosis: Anemia with hematocrit of 14.3, gastric ulcer, rule out colon source Post-op diagnosis: other (No colonic bleeding source noted. This patient has a history of coronary artery stents and unfortunately weeping gastric ulcer however her colon is clean aside from left-sided diverticulosis and moderate internal/external hemorrhoids.) Procedure: PROCEDURE: Colonoscopy REFERRING PHYSICIAN: Hai Ibrahim MD INDICATIONS: This is a patient who has a history of weeping gastric ulcer status post stenting with decrease in hematocrit to 14.3%, while she is off of anticoagulation we are checking to make sure there is not a secondary source in the colon causing her blood loss, given the degree of decrease seen. The prior H&P was reviewed and interrim changes are as noted: No change from GI consultation 2 days ago ENDOSCOPIST: Mark Ortez MD ENDOSCOPE: [employer] 100 System colonoscope COLON PREPARATION: Golytely 4 liters and dulcolax 15 mg po [id number] x 3 ASA CLASS: 4E EXAM: CV: regular rate and rhythm Respiratory: Clear without wheezes Abdominal: active bowel sounds Rectal: Good tone, no fissures or fistulas MEDICATION: Per nursing anesthesia protocol, see their notes PROCEDURE: After discussion of the potential risks and benefits of colonoscopy, the informed consent was obtained, from patient or health care surrogate. The patient was then placed in the left lateral decubitus position where sedation was achieved as noted above. Rectal examination was followed by insertion of the colonoscope. The colonoscope was passed under direct visualization to the cecum. Advancement was facilitated by insertion/withdrawl techniques, abdominal pressure and patient positioning. Once the cecal pole was reached, slow withdrawal was performed with the findings as noted below. The patient tolerated the procedure well and without complication. QUALITY OF PREP: Excellent WITHDRAWL TIME: 6 minutes 23 seconds BIOPSIES: None obtained PHOTOGRAPHS: Obtained FINDINGS: The musoca appeared normal in the following regions: rectum, sigmoid colon, descending colon, splenic flexure, transverse colon, hepatic flexure, ascending colon and cecum. Position within the cecum was confirmed by ileocecal valve, appendiceal oriface, and the convergence of folds (crows foot) . No colitis, polyp, mass or AVM was noted throughout the colon. Mild left- sided diverticulosis noted. Intubation of the TI was achieved x 5 cm with normal appearence, moderate internal and external hemorrhoids noted. IMPRESSION: This patient has a history of coronary artery stents and unfortunately weeping gastric ulcer however her colon is clean aside from left- sided diverticulosis and moderate internal/external hemorrhoids. RECOMMENDATIONS: High fiber diet Repeat colonosocopy will be in 10 years. Citrucel 1 tablespoon in 12 oz juice BID: 1 bottle: :11 Follow up by phone for biopsy results in 1-2 weeks by phone This patient has a history of a weeping gastric ulcer in her prepyloric region status post injection and BiCAP cautery yesterday. She is at high risk for further bleeding if placed directly on anticoagulation. Serious consideration should be given to either putting her on a drug with a short half-life such as Lovenox versus using a direct thrombin inhibitor such as Pradaxa which has a reversal agent, Praxabind available. Mark Ortez MD COPY TO: Hai Ibrahim MD Anesthesia: MAC Surgeon / Physician: Mark Ortez Estimated blood loss: none Specimens: none sent Condition: stable Disposition: post procedure unit Results - Labs CBC & BMP: 06/16/16 05:40 06/15/16 04:00 Discharge Plan - Discharge Medications No Action Nicotine 14 mg/24 Hr Patch [Nicoderm CQ 14 mg/24 hr Patch] 1 patch TRANSDERM DAILY Levocetirizine Dihydrochloride [Xyzal] 5 mg PO BEDTIME Insulin Glargine [Lantus] 20 unit SUBCUT BEDTIME Aspirin [Ecotrin] 325 mg PO DAILY Hydromorphone HCl 8 mg PO BID PRN PRN Reason: Pain Moderate To Severe (4-10) Dicyclomine Cap/Tab [Bentyl Cap/Tab] 20 mg PO QID PRN PRN Reason: Constipation predniSONE TAB [PredniSONE] 10 mg PO BID Hydroxychloroquine [Plaquenil] 200 mg PO BID amLODIPine [Norvasc] 10 mg PO DAILY Glipizide [Glipizide Xl] 10 mg PO BID Carvedilol [Coreg] 25 mg PO BID W/MEALS #60 tablet Ticagrelor [Brilinta] 90 mg PO BID #60 tablet Esomeprazole Magnesium [Nexium] 40 mg PO DAILY Losartan [Cozaar] 50 mg PO DAILY #30 tablet - Follow Up or Referral - Forms/Instructions
--- NOTE | 2016-06-16 09:24 | Gastrointestinal Progress Note ---
Assessment and Plan (1) Gastric ulcer with hemorrhage Status: Acute Assessment and plan: This patient underwent colonoscopy today that was negative for bleeding source. The blood loss appears to be secondary to a 1.3 cm ulcer in her prepyloric region which was weeping blood actively yesterday before injection with epinephrine and cauterization using BiCAP cautery. This patient is at high risk for rebleeding unfortunately for a unknown duration of time. It is suggested she undergo repeat upper endoscopy in 2 months. Concerning her anticoagulation: It is my suggestion to use something that has either a short half-life such as Lovenox or perhaps use Pradaxa if she has to be placed back on something immediately. The Pradaxa is a direct thrombin inhibitor which has a reversal agent, Praxabind (we have 1 dose in the hospital, but that is all it would take to reverse the patient by report from the pharmacy). Current Visit: Yes (2) Gastrointestinal hemorrhage with melena Status: Acute Assessment and plan: This patient has recent stent placement for right coronary artery disease. She was released on a combination of aspirin and Brilinta and developed melena as an outpatient with hematocrit drop from 26% to 14.6%. This being said, the patient also had periumbilical pain and diarrhea prior to coming in with a weight loss of some 30 pounds even prior to stent placement. I am concerned that there may be more than 1 source of bleeding in this patient--we will probably want to follow the upper endoscopy with a colonoscopy on 06/16/16 given the above concerns. Differential diagnosis considering the patient has dysphasia or several including esophageal and gastric cancer but also esophagitis, gastritis, peptic ulcer disease, duodenitis and sprue. She likely has some anemia secondary to chronic disease with her lupus as well. We will proceed with upper endoscopy today in order to evaluate that portion of her GI tract and follow this with colonoscopy tomorrow as mentioned. Risks of the procedure include but are not limited to: Bleeding, infection, perforation, cardiac and pulmonary compromise with cardiac difficulties being higher now that she has been stented and is off of anticoagulation. The patient understands and is willing to proceed. 06/16/16--the patient ended up having a gastric ulcer that was the cause for her bleeding yesterday, actively weeping blood, please see the above comments if she needs to restart anticoagulation in the near future due to concerns over stent clotting. Her colon is clean and she does not need to worry about a lower GI bleeding source. She incidentally was noted to have some diverticulosis in the sigmoid and moderate size internal and external hemorrhoids. Current Visit: Yes (3) Dysphagia Status: Acute Assessment and plan: Patient states that food gets stuck in her distal esophagus and if we discover a stricture we will likely dilate in order to ensure that she has good swallowing capabilities in the future now that she is off of anticoagulation for the short-term. If there is esophageal cancer we will likely take biopsies and refer for appropriate treatment. 06/16/16--the patient is doing well status post dilation yesterday. I will restart her on a solid cardiac diet as tolerated. Current Visit: Yes Gastroenterology - PN: Subj Interval history: No new complaints, no further rectal bleeding status post cauterization of gastric ulcer yesterday post injection. Hematocrit remains stable at this time. Exam (Progress Note) - Constitutional Vitals: Period Temp Pulse Resp BP Sys/Grider Pulse Ox Last 24 Hr 98.9 F-99.2 F 63-109 12-20 123-187/78-117 96-100 General appearance: no acute distress - Head Head exam: Present: normocephalic - Eye Eye exam: Present: EOMI Pupils: Present: NAVJOT - Respiratory Respiratory exam: Present: clear to auscultation bilaterally. Absent: rhonchi, stridor, wheezes - Cardiovascular Cardiovascular exam: Present: regular rate and rhythm - GI/Abdominal GI/Abdominal exam: Present: normal bowel sounds, soft. Absent: distended, tenderness, rebound - Back Exam Back exam: Present: normal inspection - Neurological Exam Neurological exam: Present: alert, oriented X3, CN II-XII intact. Absent: motor sensory deficit - Psychiatric Psychiatric exam: Present: normal affect, normal mood Results - Labs CBC & BMP: 06/16/16 05:40 06/15/16 04:00
[2016-06-16] MEDS ORDERED: GLUCAGON 1 MG VIAL IM PRN (09:27)
[2016-06-16] MEDS ORDERED: DEXTROSE 50% 25 GM/50 ML VIAL IV PRN (09:27)
[2016-06-16] MEDS: methylPREDNISolone SOD SUC 40 MG/1 ML VIAL IV SCH ×2 (10:11→22:01)
[2016-06-16] MEDS: HYDROXYCHLOROQUINE 200 MG TABLET PO SCH ×2 (10:11→22:01)
--- NOTE | 2016-06-16 10:24 | Anesthesia ---
Anesthesia Post OP - Post Ansesthetic Evaluation Patient seen in post op: Yes Resp: within normal limits CV: within normal limits Mental: within normal limits Temp: within normal limits [id number]: within normal limits Nausea and Vomiting: within normal limits Pain: within normal limits
[2016-06-16 11:12] LABS: Hematocrit 27.4 VOL% (35.7-47.0); Hemoglobin 9.1 GM/DL (12.0-16.0)
[2016-06-16 11:48] LABS: Calcium 7.7 MG/DL (8.5-10.1); Magnesium 2.2 MG/DL (1.8-2.4); Osmolality,Calculated 298.1 MOS/KG (273-304); Potassium 3.3 MMOL/L (3.5-5.1)
[2016-06-16] MEDS ORDERED: TICAGRELOR 90 MG TABLET PO ONE (11:52)
--- NOTE | 2016-06-16 11:52 | Pathology Report from [facility] ---
ACCESSION # : [id number] PATIENT NAME : Rebeca Hogan ORDERING DR : Mark Ortez MD CLINICAL HX: GI Bleed POST-OP DX: R/O H. pylori SPECIMEN INFO: MARVIN GROSS DESCRIPTION: The specimen is received in formalin labeled with the patient 's name and consists of two menon tissue fragments measuring 0.4 x 0.4 cm collectively. Submitted in one cassette. DIAGNOSIS FOR REBECA HOGAN: MARVIN BIOPSY: Chronic gastritis with intestinal metaplasia. H. pylori not seen on special stain. SERVICE DATE: 06/16/2016 REPORT DATE: 06/16/2016 PATHOLOGIST: Kate Menezes M.D. [facility]
[2016-06-16] MEDS ORDERED: CARVEDILOL 12.5 MG TABLET PO ONE (12:25)
--- NOTE | 2016-06-16 12:31 | Cardiology Progress Note ---
Dennis Connor Vanessa, RN, am scribing for, and in the presence of, Reji Biggs MD 12:29. Assessment and Plan - Time spent with patient Time spent with patient: Greater than 30 minutes (1) S/P right coronary artery (RCA) stent placement Status: Acute Assessment and plan: Underwent successful PCI of mid right coronary artery using a 2.25 x 8 mm Xience drug-eluting stent on 06/11/16. Dual antiplatelet therapy was initiated using Brilinta and aspirin. Due to significant GI bleed and anemia, antiplatelet therapy is currently being held. Monitor closely for signs or symptoms of ACS. 1.Status post colonscopy this morning without acute source of bleeding. Spoke with Dr. Ortez via telephone and conferred care. Will reintroduce antiplatelet medication and hold ASA at this time. . He is deemed best to restart the Brilinta, leave off aspirin, and if she has more bleeding we can use fresh frozen platelets 2 slow down or stop the bleeding.I also discussed the risk and benefits with the patient. She agrees with the plan. She is fully aware their risk of going either way with the risk to benefit favor restarting the Brilinta , off aspirin, and avoiding any anticoagulants. 2. Brilinta 180 mg by mouth now x 1 dose. Tomorrow, begin Brilinta 90 mg by mouth twice daily. 3.Do not give Lovenox. 4.Monitor hemodynamic carefully. 5.Monitor for s/s of ischemia. 6.Continue antihypertensive rx 7.Monitor H/H closely & overt bleeding. 8.Ok from cardiac standpoint to transfer to telemetry. I suspect the ulcer is related to her being on prednisone. Current Visit: Yes (2) Gastrointestinal hemorrhage with melena Status: Acute Assessment and plan: Acute onset of melena, black tarry stools on Tuesday. EGD yesterday with gastric ulcer actively bleeding. This was treated with epinephrine injection and cauterization. For colonoscopy this morning to evaluate for further sources of bleeding given significant anemia. Current Visit: Yes (3) Acute blood loss anemia Status: Acute Assessment and plan: Monitor H&H closely. Continue to hold antiplatelet medications. Blood transfusion as needed. Monitor vital signs closely. Current Visit: Yes (4) Chest pain Status: Acute Assessment and plan: This has resolved, and no further chest pain since presentation. Twelve-lead EKG and blood work negative for findings of ACS or other cardiac ischemia. Chest pain most likely related to significant anemia and volume depletion. Current Visit: No (5) Hypomagnesemia Status: Acute Assessment and plan: Magnesium level 1.7 today. Will replete with MagSulfate 2 gm IVPB. Check BMP with mag this morning. Current Visit: Yes (6) Hypertension Status: Chronic Assessment and plan: Since improvement of anemia post blood transfusion, hypotension has resolved and she is noted to be hypertensive. Resume medication. Current Visit: No (7) Cigarette smoker Status: Acute Assessment and plan: She was recently discharged from hospital with NicoDerm. Tobacco cessation and benefits of it has been emphasized. Current Visit: Yes (8) Diarrhea Status: Acute Current Visit: Yes (9) Dysphagia Status: Acute Current Visit: Yes (10) Diabetes Status: Chronic Current Visit: No (11) Lupus Status: Chronic Current Visit: No Cardiology - PN: Subj Interval history: Patient remains under close observation in the ICU today. She underwent EGD per Dr. Ortez yesterday for significant anemia accompanied with melena. Gastric ulcer with active bleeding identified. Area was injected with epinephrine and was cauterized. She is for colonoscopy today to evaluate for any further sources of bleeding. H&H stable this morning at 9.7 and 29.4. Systolic BP has been elevated at 140-170 mmHg. Sinus rhythm per cardiac monitoring without disturbance. Exam (Progress Note) - Constitutional Vitals: Period Temp Pulse Resp BP Sys/Grider Pulse Ox Last 24 Hr 97.0 F-99.2 F 62-109 12-20 123-187/78-117 96-100 Exam: General appearance: normal weight, no acute distress - Head Head exam: Absent: abrasion, contusion - Eye Eye exam: Absent: periorbital swelling Pupils: Present: ANVJOT - ENT ENT exam: Present: normal external ear exam - Neck Neck exam: Absent: tenderness - Respiratory Respiratory exam: Present: clear to auscultation bilaterally. Absent: accessory muscle use, chest wall tenderness, rales, rhonchi, stridor, wheezes - Cardiovascular Cardiovascular exam: Present: regular rate and rhythm. Absent: bradycardia, carotid bruit, irregular rhythm, systolic murmur, tachycardia - GI/Abdominal GI/Abdominal exam: Present: hypoactive bowel sounds, soft. Absent: ascites, distended, firm, tenderness - Rectal Rectal Exam: black stool (Per patient report) Result/EKG - Labs CBC & BMP: 06/16/16 11:00 06/16/16 Unknown Lab Results: I have reviewed the past 24 hour labs Labs: Laboratory Results - last 24 hr 06/14/16 06/15/16 06/15/16 19:50 12:07 12:11 Hgb 9.6 L Hct 29.3 L POC Glucose 210 H Blood Type O POSITIVE Antibody Screen Negative Crossmatch See Detail 06/15/16 06/15/16 06/15/16 18:09 19:35 23:32 Hgb 9.5 L Hct 28.5 L POC Glucose 196 H 326 H Blood Type Antibody Screen Crossmatch 06/16/16 06/16/16 06/16/16 00:04 05:34 05:40 Hgb 9.2 L 9.7 L Hct 28.4 L 29.4 L POC Glucose 181 H Blood Type Antibody Screen Crossmatch - EKG EKG results: interpreted by me EKG shows: sinus rhythm (pulse rate 70's; no ectopy) Quality Measures - VTE Deep Vein Thrombosis/Pulmonary Embolism Present on Admission: No Contraindication to Pharmacological VTE Prophylaxis: Already on Theraputic Agent , No Prophylaxis Needed I, Reji Biggs MD, personally performed the services described in this documentation, ascribed by Kellen Collins RN in my presence, and it is both accurate and complete .
[2016-06-16] MEDS: LOSARTAN 50 MG TABLET PO SCH (12:39)
--- NOTE | 2016-06-16 13:09 | Hospitalist Progress Note ---
Assessment and Plan (1) Acute blood loss anemia Status: Acute Assessment and plan: 1)ABLA due to UGIB- has gastric ulcer which was injected yesterday, no sign of rebleed at this point. on IV PPI. transfused on arrival and H&H came up as expected. serial H&H. on IV PPI. cscope did not identify an additional source of bleeding (diverticulosis, hemorrhoids) 2)recent cardiac stent- cards restarting Brillinta today. holding aspirin. no lovenox. 3)UTI- treatment started at outlying facility, with evidnece of UTI. no urine culture report available. On ceftrixone as started at outside hospital. 4)lupus- on chronic steroids- this is a risk for her ulcer. 5)DM- SSI Current Visit: Yes (2) Cigarette smoker Status: Acute Current Visit: Yes (3) Hypotension Status: Acute Current Visit: Yes (4) Gastrointestinal hemorrhage with melena Status: Acute Current Visit: Yes (5) S/P right coronary artery (RCA) stent placement Status: Acute Current Visit: Yes Hospitalist: Subjective Interval history: Mrs Yeager is feeling good this morning. She has had her cscope and no source of bleeding was found in the lower tract. She is hungry. Plan is to transfer to floor. Discussed plan re:antiplatelet meds with DR Biggs. Exam - Constitutional Vitals: Period Temp Pulse Resp BP Sys/Grider Pulse Ox Last 24 Hr 97.0 F-99.2 F 62-95 12-20 123-187/78-97 96-100 General appearance: normal weight, no acute distress - Head Head exam: Present: normocephalic, atraumatic - Eye Eye exam: Present: EOMI. Absent: scleral icterus - Respiratory Respiratory exam: Present: clear to auscultation bilaterally - Cardiovascular Cardiovascular exam: Present: regular rate and rhythm - GI/Abdominal GI/Abdominal exam: Present: normal bowel sounds, soft. Absent: tenderness - Extremities Exam Extremities exam: Absent: edema Results - Labs CBC & BMP: 06/16/16 11:00 06/16/16 Unknown Lab Results: I have reviewed the past 24 hour labs Quality Measures - VTE Deep Vein Thrombosis/Pulmonary Embolism Present on Admission: No Contraindication to Pharmacological VTE Prophylaxis: Already on Theraputic Agent , No Prophylaxis Needed
[2016-06-16] MEDS: CARVEDILOL 25 MG TABLET PO SCH (17:04)
[2016-06-16] MEDS: cefTRIAXone 1,000 MG in SODIUM CHLORIDE 0.9% 100 ML IV SCH (18:12)
[2016-06-16] MEDS: TICAGRELOR 90 MG TABLET PO SCH (22:01)
[2016-06-16] MEDS: PANTOPRAZOLE INJ 200 MG in SODIUM CHLORIDE 0.9% 250 ML IV SCH (23:50)
[2016-06-17 05:25] LABS: Hematocrit 25.5 VOL% (35.7-47.0); Hemoglobin 8.5 GM/DL (12.0-16.0); Lymphocytes # 0.5 10*3/uL (1.4-4.0); Lymphocytes % 5.5 % (21.3-54.2); Mean Corpuscular HGB Conc 33.3 GM/DL (32-36); Mean Corpuscular Hemoglobin 29 PG (27-34); Mean Corpuscular Volume 87.3 FL (87-102); Mean Platelet Volume 10.1 FL (9.6-12.0); Monocytes # 0.3 10*3/uL (0.11-0.8); Monocytes % 3.2 % (1.7-12.7); Neutrophils # 8.8 10*3/uL (1.4-7.4); Neutrophils % 90.3 % (38.7-73.9); Platelet Count 174 T/CUMM (130-400); Red Blood Count 2.92 MC/CUMM (3.8-5.5); Red Cell Distribution Width 14.6 % (9.3-17.3); White Blood Count 9.8 T/CUMM (4-12)
[2016-06-17] MEDS ORDERED: SODIUM CHLORIDE 0.9% 250 ML IV PRN (07:09)
--- NOTE | 2016-06-17 07:13 | Gastrointestinal Progress Note ---
Assessment and Plan (1) Gastric ulcer with hemorrhage Status: Acute Assessment and plan: This patient underwent colonoscopy today that was negative for bleeding source. The blood loss appears to be secondary to a 1.3 cm ulcer in her prepyloric region which was weeping blood actively yesterday before injection with epinephrine and cauterization using BiCAP cautery. This patient is at high risk for rebleeding unfortunately for a unknown duration of time. It is suggested she undergo repeat upper endoscopy in 2 months. Concerning her anticoagulation: It is my suggestion to use something that has either a short half-life such as Lovenox or perhaps use Pradaxa if she has to be placed back on something immediately. The Pradaxa is a direct thrombin inhibitor which has a reversal agent, Praxabind (we have 1 dose in the hospital, but that is all it would take to reverse the patient by report from the pharmacy). 06/17/16--This case discussed extensively with Dr. Biggs, he is initiated Brilinta again and we are watching the patient. She has not had any further melena. Her hematocrit has drifted down to 25.5% and I am going to initiate 1 further unit of blood to try and keep her towards 30%. If she is stable later on today versus tomorrow she could certainly be discharged to watch herself for further melena. The biopsies from the stomach of come back and demonstrate no evidence of Helicobacter pylori. She will need to stay off the aspirin for the present time and for the next 2 months before reinitiating this hopefully at a lower dose. A prescription for Protonix 40 mg twice daily has also been left in the front of her chart. This should be used at least for the next 2 months upon discharge. It would likely be helpful to use this once a day after that prior to suppertime to protect her stomach in the future as well. Current Visit: Yes (2) Gastrointestinal hemorrhage with melena Status: Acute Assessment and plan: This patient has recent stent placement for right coronary artery disease. She was released on a combination of aspirin and Brilinta and developed melena as an outpatient with hematocrit drop from 26% to 14.6%. This being said, the patient also had periumbilical pain and diarrhea prior to coming in with a weight loss of some 30 pounds even prior to stent placement. I am concerned that there may be more than 1 source of bleeding in this patient--we will probably want to follow the upper endoscopy with a colonoscopy on 06/16/16 given the above concerns. Differential diagnosis considering the patient has dysphasia or several including esophageal and gastric cancer but also esophagitis, gastritis, peptic ulcer disease, duodenitis and sprue. She likely has some anemia secondary to chronic disease with her lupus as well. We will proceed with upper endoscopy today in order to evaluate that portion of her GI tract and follow this with colonoscopy tomorrow as mentioned. Risks of the procedure include but are not limited to: Bleeding, infection, perforation, cardiac and pulmonary compromise with cardiac difficulties being higher now that she has been stented and is off of anticoagulation. The patient understands and is willing to proceed. 06/16/16--the patient ended up having a gastric ulcer that was the cause for her bleeding yesterday, actively weeping blood, please see the above comments if she needs to restart anticoagulation in the near future due to concerns over stent clotting. Her colon is clean and she does not need to worry about a lower GI bleeding source. She incidentally was noted to have some diverticulosis in the sigmoid and moderate size internal and external hemorrhoids. 06/17/16--The patient will require repeat upper endoscopy in 8 weeks. We will write an order for this. This can be done on Brilinta--as the biopsies are already obtained. Current Visit: Yes (3) Dysphagia Status: Acute Assessment and plan: Patient states that food gets stuck in her distal esophagus and if we discover a stricture we will likely dilate in order to ensure that she has good swallowing capabilities in the future now that she is off of anticoagulation for the short-term. If there is esophageal cancer we will likely take biopsies and refer for appropriate treatment. 06/16/16--the patient is doing well status post dilation yesterday. I will restart her on a solid cardiac diet as tolerated. 06/17/16--No further dysphagia noted, the patient is tolerating a cardiac diet well. Current Visit: Yes Gastroenterology - PN: Subj Interval history: No further evidence of rectal bleeding, patient is tolerating her p.o. well. She feels all right with no chest pain. Brilinta has been initiated. Hematocrit dropped to 25%. We will transfuse her 1 further unit of blood in case this is continued equilibration. Target about 30% hematocrit, as per Dr. Biggs's earlier note. Exam (Progress Note) - Constitutional Vitals: Period Temp Pulse Resp BP Sys/Grider Pulse Ox Last 24 Hr 96.8 F-99.2 F 62-101 16-20 140-159/72-97 98-100 General appearance: no acute distress - Head Head exam: Present: normocephalic - Eye Eye exam: Present: EOMI - Respiratory Respiratory exam: Present: clear to auscultation bilaterally. Absent: rales, rhonchi, wheezes - Cardiovascular Cardiovascular exam: Present: regular rate and rhythm - GI/Abdominal GI/Abdominal exam: Present: normal bowel sounds, soft. Absent: guarding, tenderness, rebound - Extremities Exam Extremities exam: Absent: edema - Neurological Exam Neurological exam: Present: alert, oriented X3 - Psychiatric Psychiatric exam: Present: normal affect, normal mood - Skin Skin exam: Present: warm Results - Labs CBC & BMP: 06/17/16 04:42 06/16/16 Unknown
[2016-06-17] MEDS: INSULIN REGULAR 100 UNIT/ML SUBCUT SCH ×4 (07:53→22:06)
[2016-06-17] MEDS ORDERED: TICAGRELOR 90 MG TABLET PO SCH (09:00)
--- NOTE | 2016-06-17 09:02 | Hospitalist Progress Note ---
Assessment and Plan - Time spent with patient Time spent with patient: Less than 30 minutes (1) Diabetes Status: Chronic Assessment and plan: acute blood loss anemia due to UGIB-- gastric ulcer found by dr ceron and injected. there are no signs of rebleeding but pts HH dropped to 8.5/25.5. dr ceron giving 1 more unit of PRBCs. on BID PPIs. recent cardiac stent-- Brilinta has been restarted by cardiology, holding asa, no lovenox UTI--treatment had been initiated at [facility]. rocephin has been given here. no urine culture report. lupus--on chronic steroids which is a risk for ulcer DM--cont SSI and will restart home meds on dc discussed w dr richard. home later today or tomorrow if ok w dr ceron and dominik. Current Visit: No (2) Acute blood loss anemia Status: Acute Current Visit: Yes (3) Tobacco abuse Status: Acute Current Visit: No (4) Hypotension Status: Acute Current Visit: Yes (5) Gastrointestinal hemorrhage with melena Status: Acute Current Visit: Yes (6) S/P right coronary artery (RCA) stent placement Status: Acute Current Visit: Yes Exam - Constitutional Vitals: Period Temp Pulse Resp BP Sys/Grider Pulse Ox Last 24 Hr 96.8 F-99.2 F 62-101 16-20 140-159/72-97 98-100 Results - Labs CBC & BMP: 06/17/16 04:42 06/16/16 Unknown Quality Measures - VTE Deep Vein Thrombosis/Pulmonary Embolism Present on Admission: No Contraindication to Pharmacological VTE Prophylaxis: Already on Theraputic Agent , No Prophylaxis Needed
[2016-06-17] MEDS: HYDROXYCHLOROQUINE 200 MG TABLET PO SCH ×2 (09:51→22:05)
[2016-06-17] MEDS: amLODIPine 10 MG TABLET PO SCH (09:51)
[2016-06-17] MEDS: CARVEDILOL 25 MG TABLET PO SCH ×2 (09:51→18:56)
[2016-06-17] MEDS: TICAGRELOR 90 MG TABLET PO SCH ×2 (09:51→22:05)
[2016-06-17] MEDS: LOSARTAN 50 MG TABLET PO SCH (09:51)
[2016-06-17] MEDS: methylPREDNISolone SOD SUC 40 MG/1 ML VIAL IV SCH ×2 (09:52→22:07)
[2016-06-17] MEDS: cefTRIAXone 1,000 MG in SODIUM CHLORIDE 0.9% 100 ML IV SCH (18:10)
--- NOTE | 2016-06-17 20:08 | Cardiology Progress Note ---
Nikolas, Kellen Collins RN, am scribing for, and in the presence of, Reji Biggs MD 20:06. Assessment and Plan - Time spent with patient Time spent with patient: Greater than 30 minutes (1) S/P right coronary artery (RCA) stent placement Status: Acute Assessment and plan: Underwent successful PCI of mid right coronary artery using a 2.25 x 8 mm Xience drug-eluting stent on 06/11/16. Dual antiplatelet therapy was initiated using Brilinta and aspirin. Monitor closely for signs or symptoms of ACS. Status post EGD with bleeding gastric ulcer injected with epinephrine and cauterized. Colonscopy yesterday did not found addional source of bleeding. Brilinta loading dose 180 mg x 1 by mouth reintroduced yesterday afternoon. 1.Discussed care with Dr. Ortez this morning. HCT decreased to 25.5 this morning. Agree with 1 unit PRBC this morning. 2. Continue Brilinta 90 mg by mouth twice daily. 3.Do not give Lovenox or ASA. 4.Monitor hemodynamic carefully. 5.Monitor for s/s of ischemia. 6.Continue antihypertensive rx 7.Monitor H/H closely & overt bleeding. 8. I discussed with the patient about watching for any signs or symptoms of bleeding, such as black stool or blood in stool. If she has that occur she needs to promptly be seen in the emergency room. She voices understanding. When she sees Dr. Trent Major in follow-up he will be checking some labs, probably a CBC and a chemistry. She will need to be on single antiplatelet therapy, without aspirin, because of her ulcer. Thank you for allowing me to participate in this patient's care Current Visit: Yes (2) Gastrointestinal hemorrhage with melena Status: Acute Assessment and plan: Acute onset of melena, black tarry stools on Tuesday. EGD 06/15 with gastric ulcer actively bleeding. This was treated with epinephrine injection and cauterization. Colonscopy 06/16 did not identify source of bleeding. Current Visit: Yes (3) Acute blood loss anemia Status: Acute Assessment and plan: Monitor H&H closely. Continue to hold antiplatelet medications. Blood transfusion as needed. Monitor vital signs closely. HCT has drifted down downward over past 24 hours. This morning is 25.5%, and she will be transfused with 1 unit PRBC. Current Visit: Yes (4) Chest pain Status: Acute Assessment and plan: This has resolved, and no further chest pain since presentation. Twelve-lead EKG and blood work negative for findings of ACS or other cardiac ischemia. Chest pain most likely related to significant anemia and volume depletion. Current Visit: No (5) Hypomagnesemia Status: Acute Assessment and plan: Resolved. Mag level is 2.2. Current Visit: Yes (6) Hypertension Status: Chronic Assessment and plan: Since improvement of anemia post blood transfusion, hypotension has resolved and she is noted to be hypertensive. Resume medication. Current Visit: No (7) Cigarette smoker Status: Acute Assessment and plan: She was recently discharged from hospital with NicoDerm. Tobacco cessation and benefits of it has been emphasized. Current Visit: Yes (8) Diarrhea Status: Acute Current Visit: Yes (9) Dysphagia Status: Acute Current Visit: Yes (10) Diabetes Status: Chronic Current Visit: No (11) Lupus Status: Chronic Current Visit: No Cardiology - PN: Subj Interval history: Ms. Yeager is doing is resting comfortably this morning. Denies new complaint overnight. No CP, SOB, or other cardiac complaint. HCT has trended down, and this morning is 25.5. She is to receive 1 unit PRBC's today and monitored closely. Exam (Progress Note) - Constitutional Vitals: Period Temp Pulse Resp BP Sys/Grider Pulse Ox Last 24 Hr 96.8 F-99.2 F 62-136 16-20 140-159/72-97 98-100 Exam: General appearance: normal weight, no acute distress - Head Head exam: Absent: abrasion, contusion - Eye Eye exam: Absent: periorbital swelling Pupils: Present: NAVJOT - ENT ENT exam: Present: normal external ear exam - Neck Neck exam: Absent: tenderness - Respiratory Respiratory exam: Present: clear to auscultation bilaterally. Absent: accessory muscle use, chest wall tenderness, rales, rhonchi, stridor, wheezes - Cardiovascular Cardiovascular exam: Present: regular rate and rhythm. Absent: bradycardia, carotid bruit, irregular rhythm, systolic murmur, tachycardia - GI/Abdominal GI/Abdominal exam: Present: hypoactive bowel sounds, soft. Absent: ascites, distended, firm, tenderness - Rectal Rectal Exam: black stool (Per patient report) Result/EKG - Labs CBC & BMP: 06/17/16 04:42 06/16/16 Unknown Lab Results: I have reviewed the past 24 hour labs Labs: Laboratory Results - last 24 hr 06/16/16 06/16/16 06/16/16 11:00 12:04 16:45 WBC RBC Hgb 9.1 L Hct 27.4 L MCV MCH MCHC RDW Plt Count MPV Neut % (Auto) Lymph % (Auto) [place] % (Auto) Eos % (Auto) Baso % (Auto) Neut # (Auto) Lymph # (Auto) [place] # (Auto) Eos # (Auto) Baso # (Auto) Immature Gran % Nucleated RBC % Immature Gran # Nucleated RBCs # Sodium Potassium Chloride Carbon Dioxide Anion Gap BUN Creatinine GFR Calculation BUN/Creatinine Ratio Glucose POC Glucose 164 H 356 H Calculated Osmolality Calcium Magnesium Blood Type Antibody Screen Crossmatch 06/16/16 06/16/16 06/17/16 19:08 Unknown 04:42 WBC 9.8 D RBC 2.92 L Hgb 8.5 L Hct 25.5 L MCV 87.3 MCH 29 MCHC 33.3 RDW 14.6 Plt Count 174 MPV 10.1 Neut % (Auto) 90.3 H Lymph % (Auto) 5.5 L [place] % (Auto) 3.2 Eos % (Auto) 0.0 Baso % (Auto) 0.0 Neut # (Auto) 8.8 H Lymph # (Auto) 0.5 L [place] # (Auto) 0.3 Eos # (Auto) 0.0 Baso # (Auto) 0.0 Immature Gran % 1.0 Nucleated RBC % 0.0 Immature Gran # 0.10 Nucleated RBCs # 0.00 Sodium 149 H Potassium 3.3 L Chloride 120 H Carbon Dioxide 18 L Anion Gap 14.3 BUN 20 H Creatinine 1.00 GFR Calculation 75 BUN/Creatinine Ratio 20.00 Glucose 94 POC Glucose 243 H Calculated Osmolality 298.1 Calcium 7.7 L Magnesium 2.2 Blood Type Antibody Screen Crossmatch 06/17/16 06/17/16 04:42 07:50 WBC RBC Hgb Hct MCV MCH MCHC RDW Plt Count MPV Neut % (Auto) Lymph % (Auto) [place] % (Auto) Eos % (Auto) Baso % (Auto) Neut # (Auto) Lymph # (Auto) [place] # (Auto) Eos # (Auto) Baso # (Auto) Immature Gran % Nucleated RBC % Immature Gran # Nucleated RBCs # Sodium Potassium Chloride Carbon Dioxide Anion Gap BUN Creatinine GFR Calculation BUN/Creatinine Ratio Glucose POC Glucose 148 H Calculated Osmolality Calcium Magnesium Blood Type O POSITIVE Antibody Screen Negative Crossmatch See Detail - EKG EKG results: interpreted by me, no acute changes EKG shows: sinus rhythm Quality Measures - VTE Deep Vein Thrombosis/Pulmonary Embolism Present on Admission: No Contraindication to Pharmacological VTE Prophylaxis: Already on Theraputic Agent , No Prophylaxis Needed IDian Dale, MD, personally performed the services described in this documentation, ascribed by Kellen Collins RN in my presence, and it is both accurate and complete .
[2016-06-18 05:02] LABS: Basophils % 0.1 % (0.0-0.8); Hematocrit 25.8 VOL% (35.7-47.0); Hemoglobin 8.4 GM/DL (12.0-16.0); Immature Granulocytes % 1.4 %; Immature Granulocytes Absolute 0.14 #; Lymphocytes # 0.6 10*3/uL (1.4-4.0); Lymphocytes % 6.1 % (21.3-54.2); Mean Corpuscular HGB Conc 32.6 GM/DL (32-36); Mean Corpuscular Hemoglobin 29 PG (27-34); Mean Corpuscular Volume 87.5 FL (87-102); Mean Platelet Volume 9.9 FL (9.6-12.0); Monocytes # 0.5 10*3/uL (0.11-0.8); Monocytes % 5.3 % (1.7-12.7); Neutrophils # 8.7 10*3/uL (1.4-7.4); Neutrophils % 87.1 % (38.7-73.9); Platelet Count 166 T/CUMM (130-400); Red Blood Count 2.95 MC/CUMM (3.8-5.5)
--- NOTE | 2016-06-18 07:12 | Gastrointestinal Progress Note ---
Assessment and Plan (1) Gastric ulcer with hemorrhage Status: Acute Assessment and plan: This patient underwent colonoscopy today that was negative for bleeding source. The blood loss appears to be secondary to a 1.3 cm ulcer in her prepyloric region which was weeping blood actively yesterday before injection with epinephrine and cauterization using BiCAP cautery. This patient is at high risk for rebleeding unfortunately for a unknown duration of time. It is suggested she undergo repeat upper endoscopy in 2 months. Concerning her anticoagulation: It is my suggestion to use something that has either a short half-life such as Lovenox or perhaps use Pradaxa if she has to be placed back on something immediately. The Pradaxa is a direct thrombin inhibitor which has a reversal agent, Praxabind (we have 1 dose in the hospital, but that is all it would take to reverse the patient by report from the pharmacy). 06/17/16--This case discussed extensively with Dr. Biggs, he is initiated Brilinta again and we are watching the patient. She has not had any further melena. Her hematocrit has drifted down to 25.5% and I am going to initiate 1 further unit of blood to try and keep her towards 30%. If she is stable later on today versus tomorrow she could certainly be discharged to watch herself for further melena. The biopsies from the stomach of come back and demonstrate no evidence of Helicobacter pylori. She will need to stay off the aspirin for the present time and for the next 2 months before reinitiating this hopefully at a lower dose. A prescription for Protonix 40 mg twice daily has also been left in the front of her chart. This should be used at least for the next 2 months upon discharge. It would likely be helpful to use this once a day after that prior to suppertime to protect her stomach in the future as well. 06/18/16--The nursing staff states that the patient was transfused another unit of blood yesterday. This is not reflected by the blood bank tab in the EMR which states that the unit of blood is ready but not given. The patient states that she has started having dark stools again, if she was given the blood and we know that she has a ulcer that was recently treated the Brilinta may be causing further GI bleeding and may need to be held again in order to keep immediate GI bleeding from occurring. I will leave this to Dr. Biggs. She will need a repeat upper endoscopy in 8 weeks. She can continue oral intake. Outside of discontinuation of the anticoagulation for a longer period of time I have no other further recommendations and will sign off at this point. Current Visit: Yes (2) Gastrointestinal hemorrhage with melena Status: Acute Assessment and plan: This patient has recent stent placement for right coronary artery disease. She was released on a combination of aspirin and Brilinta and developed melena as an outpatient with hematocrit drop from 26% to 14.6%. This being said, the patient also had periumbilical pain and diarrhea prior to coming in with a weight loss of some 30 pounds even prior to stent placement. I am concerned that there may be more than 1 source of bleeding in this patient--we will probably want to follow the upper endoscopy with a colonoscopy on 06/16/16 given the above concerns. Differential diagnosis considering the patient has dysphasia or several including esophageal and gastric cancer but also esophagitis, gastritis, peptic ulcer disease, duodenitis and sprue. She likely has some anemia secondary to chronic disease with her lupus as well. We will proceed with upper endoscopy today in order to evaluate that portion of her GI tract and follow this with colonoscopy tomorrow as mentioned. Risks of the procedure include but are not limited to: Bleeding, infection, perforation, cardiac and pulmonary compromise with cardiac difficulties being higher now that she has been stented and is off of anticoagulation. The patient understands and is willing to proceed. 06/16/16--the patient ended up having a gastric ulcer that was the cause for her bleeding yesterday, actively weeping blood, please see the above comments if she needs to restart anticoagulation in the near future due to concerns over stent clotting. Her colon is clean and she does not need to worry about a lower GI bleeding source. She incidentally was noted to have some diverticulosis in the sigmoid and moderate size internal and external hemorrhoids. 06/17/16--The patient will require repeat upper endoscopy in 8 weeks. We will write an order for this. This can be done on Brilinta--as the biopsies are already obtained. 06/18/16--prescription for Protonix written and are in the chart, follow-up repeat endoscopy in 8 weeks, again if the patient is having active blood in her stool now Dr. Biggs may wish to hold off on the Brilinta, switch to another agent such as Plavix, switch to Pradaxa, switch to Lovenox, or simply hold off on all anticoagulation for a period and restart the Brilinta again after some healing takes place. Repeat endoscopy with further trauma of the ulcer is not going to be helpful. Current Visit: Yes (3) Dysphagia Status: Acute Assessment and plan: Patient states that food gets stuck in her distal esophagus and if we discover a stricture we will likely dilate in order to ensure that she has good swallowing capabilities in the future now that she is off of anticoagulation for the short-term. If there is esophageal cancer we will likely take biopsies and refer for appropriate treatment. 06/16/16--the patient is doing well status post dilation yesterday. I will restart her on a solid cardiac diet as tolerated. 06/17/16--No further dysphagia noted, the patient is tolerating a cardiac diet well. 06/18/16--Patient is doing adequately at this time as far as swelling goes, repeat upper endoscopy in 8 weeks, I do not anticipate requiring another dilation or biopsies at that time. Please let me know if I can be of further help. Current Visit: Yes Gastroenterology - PN: Subj Interval history: Patient states that she is starting to have dark stools again and yesterday was noted to have a hematocrit of 25.5% and was transfused another unit of packed red blood cells which brought her hematocrit back up to 25.8%. She may be equilibrating or she may have passed another unit of blood in the interim 24 hours as a result of restarted the Brilinta. She is at high risk for rebleeding due to recently treated ulcer. Exam (Progress Note) - Constitutional Vitals: Period Temp Pulse Resp BP Sys/Grider Pulse Ox Last 24 Hr 96.2 F-98.4 F 68-136 16-20 132-163/76-99 99-100 General appearance: no acute distress - Eye Eye exam: Present: EOMI Pupils: Present: NAVJOT - Respiratory Respiratory exam: Present: clear to auscultation bilaterally. Absent: rhonchi, wheezes - Cardiovascular Cardiovascular exam: Present: regular rate and rhythm - GI/Abdominal GI/Abdominal exam: Present: normal bowel sounds, soft. Absent: distended, tenderness, rebound - Neurological Exam Neurological exam: Present: alert, oriented X3, CN II-XII intact - Psychiatric Psychiatric exam: Present: normal affect, normal mood - Skin Skin exam: Present: warm Results - Labs CBC & BMP: 06/18/16 04:10 06/16/16 Unknown
[2016-06-18] MEDS: INSULIN REGULAR 100 UNIT/ML SUBCUT SCH ×4 (08:55→21:08)
[2016-06-18] MEDS: amLODIPine 10 MG TABLET PO SCH (08:56)
[2016-06-18] MEDS: PANTOPRAZOLE 40 MG TABLET PO SCH ×2 (08:56→21:05)
[2016-06-18] MEDS: CARVEDILOL 25 MG TABLET PO SCH ×2 (08:56→17:50)
[2016-06-18] MEDS: HYDROXYCHLOROQUINE 200 MG TABLET PO SCH ×2 (08:57→21:05)
[2016-06-18] MEDS: LOSARTAN 50 MG TABLET PO SCH (08:57)
[2016-06-18] MEDS ORDERED: PANTOPRAZOLE 40 MG VIAL IV SCH (09:00)
[2016-06-18] MEDS: methylPREDNISolone SOD SUC 40 MG/1 ML VIAL IV SCH (09:30)
[2016-06-18] MEDS ORDERED: SODIUM CHLORIDE 0.9% 250 ML IV PRN (10:50)
[2016-06-18] MEDS ORDERED: HEPARIN LOCK FLUSH 500 UNIT/5 ML SYRINGE IV ONE (12:39)
--- NOTE | 2016-06-18 13:53 | Hospitalist Progress Note ---
Assessment and Plan (1) Acute blood loss anemia Status: Acute Assessment and plan: 1)ABLA due to UGIB from gastric ulcer that was injected at EGD the day after admission. Now with signs of rebleeding. Cscope did not show additional source of bleeding. holding Brillinta for now. Dr Nuñez seeking transfer to [facility]. On PPI BID, now changed to po. 2)recent cardiac stent- holding asa and now Brillinta also. no lovenox. at risk for in stent restenosis. 3)UTI- treatment started at outside facility for UTI, no culture report available. day 4 of antibiotics. stop in am and recheck urine. 4)lupus- on chronic steroids which is a risk for ulcer. Change IV solumedrol to her usual po prednisone. 5)diabetes- ssi Current Visit: Yes (2) Cigarette smoker Status: Acute Current Visit: Yes (3) Hypotension Status: Acute Current Visit: Yes (4) Gastrointestinal hemorrhage with melena Status: Acute Current Visit: Yes (5) S/P right coronary artery (RCA) stent placement Status: Acute Current Visit: Yes Hospitalist: Subjective Interval history: Mrs Yeager is feeling ok today but last night started to have black bowel movements. Her H&H is the same as yesterday despite transfusion of a unit of blood. I spoke to her and we agreed that we were interested in discussing this with Dr Nuñez and would hold this morning's dose of Brillinta until we did. Dr Nuñez saw Mrs Yeager and her daughter who was not present when I was there this morning. He called me after they spoke and her reviewed the developments. The daughter refused the transfusion. She wants to have her mother transferred to [facility] and Dr Nuñez tells me that the daughter is going to pursue finding a doctor there to accept her and then he will call to talk to someone about arranging transfer and let me know the results of that phone call. We are holding Brillinta for now. Dr Ortez has signed off. Exam - Constitutional Vitals: Period Temp Pulse Resp BP Sys/Grider Pulse Ox Last 24 Hr 96.4 F-98.3 F 75-101 16-20 122-163/72-95 99-100 General appearance: normal weight, no acute distress - Head Head exam: Present: normocephalic, atraumatic - Eye Eye exam: Present: EOMI. Absent: scleral icterus - Respiratory Respiratory exam: Present: clear to auscultation bilaterally - Cardiovascular Cardiovascular exam: Present: regular rate and rhythm - GI/Abdominal GI/Abdominal exam: Present: normal bowel sounds, soft. Absent: tenderness - Extremities Exam Extremities exam: Absent: edema - Neurological Exam Neurological exam: Present: alert, oriented X3 - Skin Skin exam: Present: warm, dry Results - Labs CBC & BMP: 06/18/16 04:10 06/16/16 Unknown Lab Results: I have reviewed the past 24 hour labs Quality Measures - VTE Deep Vein Thrombosis/Pulmonary Embolism Present on Admission: No Contraindication to Pharmacological VTE Prophylaxis: Already on Theraputic Agent , No Prophylaxis Needed Specialty Discharge - Follow Up or Referrals Follow up with: Mark Ortez MD [Physician] - (EGD by Dr. Ortez at [facility] on Tuesday, August 09, at 6AM. Nothing to eat or drink after midnight prior to procedure.)
[2016-06-18] MEDS ORDERED: POTASSIUM CHLORIDE 20 MEQ TABLET PO ONE (13:54)
[2016-06-18] MEDS: cefTRIAXone 1,000 MG in SODIUM CHLORIDE 0.9% 100 ML IV SCH (18:49)
--- NOTE | 2016-06-18 20:15 | Cardiology Progress Note ---
Nikolas, Kellen Collins RN, am scribing for, and in the presence of, Reji Biggs MD 20:13. Assessment and Plan - Time spent with patient Time spent with patient: Less than 30 minutes (1) S/P right coronary artery (RCA) stent placement Problem details: Done about 06/11/16, very recent Status: Acute Assessment and plan: Underwent successful PCI of mid right coronary artery using a 2.25 x 8 mm Xience drug-eluting stent on 06/11/16. Dual antiplatelet therapy was initiated using Brilinta and aspirin. Monitor closely for signs or symptoms of ACS. Status post EGD with bleeding gastric ulcer injected with epinephrine and cauterized. Colonscopy yesterday did not found additional source of bleeding. Brilinta loading dose 180 mg x 1 by mouth reintroduced yesterday afternoon. 06/17/16 update: A/P: 1.Discussed care with Dr. Ortez this morning. HCT decreased to 25.5 this morning. Agree with 1 unit PRBC this morning. 2. Continue Brilinta 90 mg by mouth twice daily. 3.Do not give Lovenox or ASA. 4.Monitor hemodynamic carefully. 5.Monitor for s/s of ischemia. 6.Continue antihypertensive rx 7.Monitor H/H closely & overt bleeding. 8. I discussed with the patient about watching for any signs or symptoms of bleeding, such as black stool or blood in stool. If she has that occur she needs to promptly be seen in the emergency room. She voices understanding. When she sees Dr. Trent Major in follow-up he will be checking some labs, probably a CBC and a chemistry. She will need to be on single antiplatelet therapy, without aspirin, because of her ulcer 06/18/16 update: A/P: 1. Discontinue Brilinta. 2. Do not give aspirin. 3. Continue to monitor hematocrit. 4. Continue to monitor for S/S of ischemia. 5. Post 1 unit packed red blood cell infusion 06/17/16 with no improvement in hematocrit. Dark, black stool reported per patient overnight and has increased in frequency. Will transfuse 1 unit packed red blood cells today. Will speak with seasonal greenery bundler from [facility] if family wishes to proceed with transfer and when this information is provided, we will proceed from there. 6. I Call [facility] for assistance. The executive sous chef, Dr. Gilliam, said our approach was correct--using some in thieinopyridine is a freshly placed stent, knowing the risk of stent thrombosis is high without it. He felt like we need to get GI to help in controlling the bleed. I then talked with Dr. Dinesh Miller , [facility]. He also wanted to me to make sure the black or dark stool was in fact blood. Will check stool guaiacs. The lack of rise of the hematocrit after a unit of blood would suggest it is blood. He suggested that the next approach would be a scope and clip the ulcer. If it then rebleeds, radiology would have a marker to see where they can embolize the vessel. The ulcer is in the prepylorus. I then called Dr. Tang. He had discussed [facility]'s thoughts. He said he could put a clip but he thought it might fall off in a few days and might not be as helpful. He also felt also shallow and may heal more quickly if we give it some time. He considered a clip or embolization would cause ischemia and slow down healing. Thus, our collected plan was to hold the Brilinta for 48 hours. It should continue to "protect" stent for now, from his residual effects. We will give blood as needed. At that point, we will rebolus with the Brilinta,[ executive sous chef at [facility] felt like changing to Plavix might not be any more beneficial or bleed less] and then watch her. If she then bled he would place a clip and see if it stop the bleeding. If it is not, we will get interventional radiology to do an embolization of the artery to that artery location of the stomach. The above was discussed with the patient, the patient's nurse, and the patient' s sister by recording. All agree with the plan. At this point, we will not transfer her to [facility]. Current Visit: Yes (2) Gastrointestinal hemorrhage with melena Status: Acute Assessment and plan: Acute onset of melena, black tarry stools on Tuesday. EGD 06/15 with gastric ulcer actively bleeding. This was treated with epinephrine injection and cauterization. Colonscopy 06/16 did not identify source of bleeding. Current Visit: Yes (3) Acute blood loss anemia Status: Acute Assessment and plan: Monitor H&H closely. Continue to hold antiplatelet medications. Blood transfusion as needed. Monitor vital signs closely. HCT has drifted down downward over past 24 hours. This morning is 25.5%, and she will be transfused with 1 unit PRBC. Current Visit: Yes (4) Chest pain Status: Acute Assessment and plan: This has resolved, and no further chest pain since presentation. Twelve-lead EKG and blood work negative for findings of ACS or other cardiac ischemia. Chest pain most likely related to significant anemia and volume depletion. Current Visit: No (5) Hypomagnesemia Status: Acute Assessment and plan: Resolved. Mag level is 2.2. Current Visit: Yes (6) Hypertension Status: Chronic Assessment and plan: Since improvement of anemia post blood transfusion, hypotension has resolved and she is noted to be hypertensive. Resume medication. Current Visit: No (7) Cigarette smoker Status: Acute Assessment and plan: She was recently discharged from hospital with NicoDerm. Tobacco cessation and benefits of it has been emphasized. Current Visit: Yes (8) Diarrhea Status: Acute Current Visit: Yes (9) Dysphagia Status: Acute Current Visit: Yes (10) Diabetes Status: Chronic Current Visit: No (11) Lupus Status: Chronic Current Visit: No Cardiology - PN: Subj Interval history: Ms. Yeager is seen and examined this morning in room on 4E. Patient's sister present at bedside. Patient is awake and alert in no acute distress this morning, she is sitting up on side of bed visiting with sister. She did receive transfusion yesterday 1 unit packed red blood cells, and hematocrit of 25.5% showed no significant improvement. Hematocrit this morning 25.8% and she is receiving 1 unit packed red blood cells today. Overnight she has continued to have dark stools again. Brilinta has been stopped, and no aspirin is being given. Denies shortness of breath, but does admit to some chest "burning" today. No hypotension, regular rhythm and pulse rate. Gastroenterology, Dr. Ortez, has signed off. Patient's daughter at bedside, and an additional daughter who is not currently present, wish to have the mother transferred to [facility]. Daughter present at bedside states she is going to hopefully find a doctor at [facility] to accept her. Will speak with seasonal greenery bundler from [facility] regarding transfer if family wishes, and we will proceed from there. Exam (Progress Note) - Constitutional Vitals: Period Temp Pulse Resp BP Sys/Grider Pulse Ox Last 24 Hr 96.2 F-98.4 F 68-101 16-20 132-163/76-99 99-100 Exam: General appearance: normal weight, no acute distress - Head Head exam: Absent: abrasion, contusion - Eye Eye exam: Absent: periorbital swelling Pupils: Present: NAVJOT - ENT ENT exam: Present: normal external ear exam - Neck Neck exam: Absent: tenderness - Respiratory Respiratory exam: Present: clear to auscultation bilaterally. Absent: accessory muscle use, chest wall tenderness, rales, rhonchi, stridor, wheezes - Cardiovascular Cardiovascular exam: Present: regular rate and rhythm. Absent: bradycardia, carotid bruit, irregular rhythm, systolic murmur, tachycardia - GI/Abdominal GI/Abdominal exam: Present: hypoactive bowel sounds, soft. Absent: ascites, distended, firm, tenderness - Rectal Rectal Exam: black stool (Per patient report) Result/EKG - Labs CBC & BMP: 06/18/16 04:10 06/16/16 Unknown Lab Results: I have reviewed the past 24 hour labs Labs: Laboratory Results - last 24 hr 06/14/16 06/17/16 06/17/16 19:50 04:42 16:00 WBC RBC Hgb Hct MCV MCH MCHC RDW Plt Count MPV Neut % (Auto) Lymph % (Auto) [place] % (Auto) Eos % (Auto) Baso % (Auto) Neut # (Auto) Lymph # (Auto) [place] # (Auto) Eos # (Auto) Baso # (Auto) Immature Gran % Nucleated RBC % Immature Gran # Nucleated RBCs # POC Glucose 389 H Blood Type O POSITIVE O POSITIVE Antibody Screen Negative Negative Crossmatch See Detail See Detail 06/17/16 06/17/16 06/18/16 18:59 23:57 04:10 WBC 10.0 RBC 2.95 L Hgb 8.4 L Hct 25.8 L MCV 87.5 MCH 29 MCHC 32.6 RDW 15.0 Plt Count 166 MPV 9.9 Neut % (Auto) 87.1 H Lymph % (Auto) 6.1 L [place] % (Auto) 5.3 Eos % (Auto) 0.0 Baso % (Auto) 0.1 Neut # (Auto) 8.7 H Lymph # (Auto) 0.6 L [place] # (Auto) 0.5 Eos # (Auto) 0.0 Baso # (Auto) 0.0 Immature Gran % 1.4 Nucleated RBC % 0.0 Immature Gran # 0.14 Nucleated RBCs # 0.00 POC Glucose 288 H 292 H Blood Type Antibody Screen Crossmatch 06/18/16 07:34 WBC RBC Hgb Hct MCV MCH MCHC RDW Plt Count MPV Neut % (Auto) Lymph % (Auto) [place] % (Auto) Eos % (Auto) Baso % (Auto) Neut # (Auto) Lymph # (Auto) [place] # (Auto) Eos # (Auto) Baso # (Auto) Immature Gran % Nucleated RBC % Immature Gran # Nucleated RBCs # POC Glucose 223 H Blood Type Antibody Screen Crossmatch - EKG EKG results: interpreted by me, no acute changes EKG shows: sinus rhythm Quality Measures - VTE Deep Vein Thrombosis/Pulmonary Embolism Present on Admission: No Contraindication to Pharmacological VTE Prophylaxis: Already on Theraputic Agent , No Prophylaxis Needed Specialty Discharge - Follow Up or Referrals Follow up with: Mark Ortez MD [Physician] - (EGD by Dr. Ortez at [facility] on Tuesday, August 09, at 6AM. Nothing to eat or drink after midnight prior to procedure.) I, Reji Biggs MD, personally performed the services described in this documentation, ascribed by Kellen Collins RN in my presence, and it is both accurate and complete .
[2016-06-18] MEDS: predniSONE 10 MG TABLET PO SCH (21:05)
[2016-06-18] MEDS: POLYETHYLENE GLYCOL POWDER 17 GM PACK PO SCH (21:05)
[2016-06-19 05:45] LABS: Basophils % 0.1 % (0.0-0.8); Hematocrit 28.6 VOL% (35.7-47.0); Hemoglobin 9.6 GM/DL (12.0-16.0); Immature Granulocytes % 1.8 %; Immature Granulocytes Absolute 0.21 #; Lymphocytes # 0.8 10*3/uL (1.4-4.0); Lymphocytes % 7.1 % (21.3-54.2); Mean Corpuscular HGB Conc 33.6 GM/DL (32-36); Mean Corpuscular Hemoglobin 29 PG (27-34); Mean Corpuscular Volume 84.9 FL (87-102); Monocytes % 8.8 % (1.7-12.7); Neutrophils # 9.4 10*3/uL (1.4-7.4); Neutrophils % 82.2 % (38.7-73.9); Platelet Count 183 T/CUMM (130-400); Red Blood Count 3.37 MC/CUMM (3.8-5.5); Red Cell Distribution Width 15.3 % (9.3-17.3); White Blood Count 11.4 T/CUMM (4-12)
[2016-06-19 06:08] LABS: Calcium 8.2 MG/DL (8.5-10.1); Osmolality,Calculated 303.4 MOS/KG (273-304); Potassium 4.1 MMOL/L (3.5-5.1)
[2016-06-19] MEDS: INSULIN REGULAR 100 UNIT/ML SUBCUT SCH ×4 (07:30→21:32)
--- NOTE | 2016-06-19 09:03 | Hospitalist Progress Note ---
Assessment and Plan - Time spent with patient Time spent with patient: Less than 30 minutes (1) Acute blood loss anemia Status: Acute Assessment and plan: Patient has acute blood loss anemia secondary to GI bleed. Have consulted GI, begun IV proton pump inhibitor, and will transfuse to achieve a hemoglobin of 9- 10 with her underlying coronary disease. 06/19/16: Hospital course and findings have been noted. Continue current management and follow hemoglobin and hematocrit and transfuse as needed. She is currently stable with no evidence of recurrent blood loss at this time. Current Visit: Yes (2) GI bleed Status: Acute Assessment and plan: Patient has evidence of upper GI bleed with acute blood loss anemia. She will be placed in the ICU and transfused to achieve a hemoglobin of 9-10. Will begin IV proton pump inhibitors and consult gastroenterology for possible upper endoscopy. 06/19/16: Patient had upper endoscopy noting a gastric ulcer in which Dr. Ortez controlled the bleeding with cauterization and BiCAP therapy. Continuing proton pump inhibitor and at present or withholding any anticoagulants. Current Visit: Yes (3) UTI (urinary tract infection) Status: Acute Assessment and plan: Patient has evidence of UTI and is received a dose of IV Rocephin at the outlying facility. We will continue for now and await cultures. 06/19/16: Patient has received IV Rocephin and should have completed treatment at this time. Cultures were not available. Repeat UA will be performed. Current Visit: Yes (4) Chest pain Status: Acute Assessment and plan: Patient has chest pain with recent coronary stenting. This is likely secondary to demand secondary to her severe blood loss anemia. Will transfuse, consult cardiology, obtain serial cardiac isoenzymes and EKGs. 06/19/16: Patient has no complaints of chest pain at this time. Cardiology is following and assisting with her medical therapy. Appreciate Dr. Biggs's assistance. Current Visit: No (5) Diabetes Status: Chronic Assessment and plan: Patient has diabetes mellitus. Will continue her routine insulin dose with Accu -Cheks and sliding scale. 06/19/16: Continuing current medical regimen and sliding scale insulin therapy. Current Visit: No (6) Lupus Status: Chronic Assessment and plan: Patient has lupus and is on chronic corticosteroids. I will hold her n.p.o. for now and provide IV corticosteroids. 06/19/16: Patient is doing well and has been converted from IV Solu-Medrol to oral prednisone at this time. We will continue current regimen and follow. Current Visit: No Hospitalist: Subjective Interval history: Chart is been reviewed and hospital course noted. Patient is ambulatory in the room and has no complaints of chest pain, shortness of breath, abdominal pain, nausea, vomiting. She is tolerating her diet. She has had no further GI bleeding that she can identify. I reviewed Dr. Biggs's note from yesterday in detail and have discussed the plan with the patient and her family as well. Exam - Constitutional Vitals: Period Temp Pulse Resp BP Sys/Grider Pulse Ox Last 24 Hr 96.4 F-98.5 F 63-85 12-20 122-167/56-86 100-100 General appearance: no acute distress - Head Head exam: Present: normocephalic, atraumatic - Eye Eye exam: Present: EOMI Pupils: Present: NAVJOT - ENT ENT exam: Present: normal oropharynx - Neck Neck exam: Absent: lymphadenopathy, meningismus, tenderness, thyromegaly - Respiratory Respiratory exam: Present: clear to auscultation bilaterally. Absent: rales, rhonchi, wheezes - Cardiovascular Cardiovascular exam: Present: regular rate and rhythm. Absent: systolic murmur , tachycardia - GI/Abdominal GI/Abdominal exam: Present: normal bowel sounds, soft. Absent: distended, organomegaly, tenderness, rebound - Extremities Exam Extremities exam: Absent: calf tenderness, edema - Back Exam Back exam: Present: normal inspection - Neurological Exam Neurological exam: Present: alert, oriented X3, CN II-XII intact. Absent: motor sensory deficit - Psychiatric Psychiatric exam: Present: normal affect, normal mood. Absent: agitated, anxious - Skin Skin exam: Present: warm, dry. Absent: rash Results - Labs CBC & BMP: 06/19/16 04:00 06/19/16 04:00 Lab Results: I have reviewed the past 24 hour labs Quality Measures - VTE Deep Vein Thrombosis/Pulmonary Embolism Present on Admission: No Contraindication to Pharmacological VTE Prophylaxis: Already on Theraputic Agent , No Prophylaxis Needed Specialty Discharge - Follow Up or Referrals Follow up with: Mark Ortez MD [Physician] - (EGD by Dr. Ortez at [facility] on Tuesday, August 09, at 6AM. Nothing to eat or drink after midnight prior to procedure.)
[2016-06-19] MEDS: CARVEDILOL 25 MG TABLET PO SCH ×2 (09:38→16:36)
[2016-06-19] MEDS: amLODIPine 10 MG TABLET PO SCH (09:38)
[2016-06-19] MEDS: LOSARTAN 50 MG TABLET PO SCH (09:38)
[2016-06-19] MEDS: predniSONE 10 MG TABLET PO SCH ×2 (09:39→20:15)
[2016-06-19] MEDS: HYDROXYCHLOROQUINE 200 MG TABLET PO SCH ×2 (09:39→20:15)
[2016-06-19] MEDS: PANTOPRAZOLE 40 MG TABLET PO SCH ×2 (09:39→20:15)
[2016-06-19] MEDS: POLYETHYLENE GLYCOL POWDER 17 GM PACK PO SCH ×2 (09:41→20:16)
--- NOTE | 2016-06-19 10:24 | Gastrointestinal Progress Note ---
Assessment and Plan (1) Gastric ulcer with hemorrhage Status: Acute Assessment and plan: This patient underwent colonoscopy today that was negative for bleeding source. The blood loss appears to be secondary to a 1.3 cm ulcer in her prepyloric region which was weeping blood actively yesterday before injection with epinephrine and cauterization using BiCAP cautery. This patient is at high risk for rebleeding unfortunately for a unknown duration of time. It is suggested she undergo repeat upper endoscopy in 2 months. Concerning her anticoagulation: It is my suggestion to use something that has either a short half-life such as Lovenox or perhaps use Pradaxa if she has to be placed back on something immediately. The Pradaxa is a direct thrombin inhibitor which has a reversal agent, Praxabind (we have 1 dose in the hospital, but that is all it would take to reverse the patient by report from the pharmacy). 06/17/16--This case discussed extensively with Dr. Biggs, he is initiated Brilinta again and we are watching the patient. She has not had any further melena. Her hematocrit has drifted down to 25.5% and I am going to initiate 1 further unit of blood to try and keep her towards 30%. If she is stable later on today versus tomorrow she could certainly be discharged to watch herself for further melena. The biopsies from the stomach of come back and demonstrate no evidence of Helicobacter pylori. She will need to stay off the aspirin for the present time and for the next 2 months before reinitiating this hopefully at a lower dose. A prescription for Protonix 40 mg twice daily has also been left in the front of her chart. This should be used at least for the next 2 months upon discharge. It would likely be helpful to use this once a day after that prior to suppertime to protect her stomach in the future as well. 06/18/16--The nursing staff states that the patient was transfused another unit of blood yesterday. This is not reflected by the blood bank tab in the EMR which states that the unit of blood is ready but not given. The patient states that she has started having dark stools again, if she was given the blood and we know that she has a ulcer that was recently treated the Brilinta may be causing further GI bleeding and may need to be held again in order to keep immediate GI bleeding from occurring. I will leave this to Dr. Biggs. She will need a repeat upper endoscopy in 8 weeks. She can continue oral intake. Outside of discontinuation of the anticoagulation for a longer period of time I have no other further recommendations and will sign off at this point. 06/19/16--The patient and her sister were seen during rounds today. The complexity of the situation was explained to them as well as alternatives and options. Reasons for current therapeutic course were explained at length. The plan remains to observe the patient until she can get her Brilinta once more Tuesday afternoon and observe to see if repeat upper endoscopy will be required Tuesday morning. Hopefully the MiraLAX will be successful at flushing the patient doubt of her current melena but we will be following her hematocrit as well status post 1 unit of blood given. Her hematocrit of 25.8 now up to 28.6 posttransfusion. Current Visit: Yes (2) Gastrointestinal hemorrhage with melena Status: Acute Assessment and plan: This patient has recent stent placement for right coronary artery disease. She was released on a combination of aspirin and Brilinta and developed melena as an outpatient with hematocrit drop from 26% to 14.6%. This being said, the patient also had periumbilical pain and diarrhea prior to coming in with a weight loss of some 30 pounds even prior to stent placement. I am concerned that there may be more than 1 source of bleeding in this patient--we will probably want to follow the upper endoscopy with a colonoscopy on 06/16/16 given the above concerns. Differential diagnosis considering the patient has dysphasia or several including esophageal and gastric cancer but also esophagitis, gastritis, peptic ulcer disease, duodenitis and sprue. She likely has some anemia secondary to chronic disease with her lupus as well. We will proceed with upper endoscopy today in order to evaluate that portion of her GI tract and follow this with colonoscopy tomorrow as mentioned. Risks of the procedure include but are not limited to: Bleeding, infection, perforation, cardiac and pulmonary compromise with cardiac difficulties being higher now that she has been stented and is off of anticoagulation. The patient understands and is willing to proceed. 06/16/16--the patient ended up having a gastric ulcer that was the cause for her bleeding yesterday, actively weeping blood, please see the above comments if she needs to restart anticoagulation in the near future due to concerns over stent clotting. Her colon is clean and she does not need to worry about a lower GI bleeding source. She incidentally was noted to have some diverticulosis in the sigmoid and moderate size internal and external hemorrhoids. 06/17/16--The patient will require repeat upper endoscopy in 8 weeks. We will write an order for this. This can be done on Brilinta--as the biopsies are already obtained. 06/18/16--prescription for Protonix written and are in the chart, follow-up repeat endoscopy in 8 weeks, again if the patient is having active blood in her stool now Dr. Biggs may wish to hold off on the Brilinta, switch to another agent such as Plavix, switch to Pradaxa, switch to Lovenox, or simply hold off on all anticoagulation for a period and restart the Brilinta again after some healing takes place. Repeat endoscopy with further trauma of the ulcer is not going to be helpful. 06/19/16--Protonix continuous, encourage p.o. intake today. The plan is to observe the patient after Brilinta is given at 48 hours i.e. Tuesday night and see if ongoing bleeding is seen with potential upper endoscopy Tuesday. I will make the patient n.p.o. in anticipation of potential repeat endoscopy at that time. Current Visit: Yes (3) Dysphagia Status: Acute Assessment and plan: Patient states that food gets stuck in her distal esophagus and if we discover a stricture we will likely dilate in order to ensure that she has good swallowing capabilities in the future now that she is off of anticoagulation for the short-term. If there is esophageal cancer we will likely take biopsies and refer for appropriate treatment. 06/16/16--the patient is doing well status post dilation yesterday. I will restart her on a solid cardiac diet as tolerated. 06/17/16--No further dysphagia noted, the patient is tolerating a cardiac diet well. 06/18/16--Patient is doing adequately at this time as far as swelling goes, repeat upper endoscopy in 8 weeks, I do not anticipate requiring another dilation or biopsies at that time. Please let me know if I can be of further help. 06/19/16--No further problems. Current Visit: Yes Gastroenterology - PN: Subj Interval history: I discussed the situation with both patient and her sister in attendance, all their questions were answered. I stressed again the complexity of the issues involved and the reasons for making decisions that we have made. The plan is to observe the patient over the weekend and restart Brilinta Tuesday afternoon and observe for further bleeding that may require repeat upper endoscopy the following day. I will make patient n.p.o. on Tuesday morning in case this is required and check on her progress early in the morning. The patient did notice some black bowel movements yesterday. She has not had any further output from her rectum this morning despite MiraLAX use. She is not eating well. I have encouraged her to eat more frequently today. Exam (Progress Note) - Constitutional Vitals: Period Temp Pulse Resp BP Sys/Grider Pulse Ox Last 24 Hr 96.4 F-98.5 F 63-85 12-20 122-167/56-86 100-100 General appearance: no acute distress - Head Head exam: Present: normocephalic - Eye Eye exam: Present: EOMI Pupils: Present: NAVJOT - Respiratory Respiratory exam: Present: clear to auscultation bilaterally - Cardiovascular Cardiovascular exam: Present: regular rate and rhythm - GI/Abdominal GI/Abdominal exam: Present: normal bowel sounds, soft. Absent: distended, guarding, tenderness, rebound - Extremities Exam Extremities exam: Present: edema - Neurological Exam Neurological exam: Present: alert, oriented X3 - Psychiatric Psychiatric exam: Present: normal affect, normal mood - Skin Skin exam: Present: warm Results - Labs CBC & BMP: 06/19/16 04:00 06/19/16 04:00 Specialty Discharge - Follow Up or Referrals Follow up with: Mark Ortez MD [Physician] - (EGD by Dr. Ortez at [facility] on Tuesday, August 09, at 6AM. Nothing to eat or drink after midnight prior to procedure.)
[2016-06-19] MEDS: cefTRIAXone 1,000 MG in SODIUM CHLORIDE 0.9% 100 ML IV SCH (17:31)
--- NOTE | 2016-06-19 18:22 | Cardiology Progress Note ---
Assessment and Plan (1) S/P right coronary artery (RCA) stent placement Problem details: Done about 06/11/16, very recent Status: Acute Assessment and plan: Underwent successful PCI of mid right coronary artery using a 2.25 x 8 mm Xience drug-eluting stent on 06/11/16. Dual antiplatelet therapy was initiated using Brilinta and aspirin. Monitor closely for signs or symptoms of ACS. Status post EGD with bleeding gastric ulcer injected with epinephrine and cauterized. Colonscopy yesterday did not found additional source of bleeding. Brilinta loading dose 180 mg x 1 by mouth reintroduced yesterday afternoon. 06/17/16 update: A/P: 1.Discussed care with Dr. Ortez this morning. HCT decreased to 25.5 this morning. Agree with 1 unit PRBC this morning. 2. Continue Brilinta 90 mg by mouth twice daily. 3.Do not give Lovenox or ASA. 4.Monitor hemodynamic carefully. 5.Monitor for s/s of ischemia. 6.Continue antihypertensive rx 7.Monitor H/H closely & overt bleeding. 8. I discussed with the patient about watching for any signs or symptoms of bleeding, such as black stool or blood in stool. If she has that occur she needs to promptly be seen in the emergency room. She voices understanding. When she sees Dr. Trent Major in follow-up he will be checking some labs, probably a CBC and a chemistry. She will need to be on single antiplatelet therapy, without aspirin, because of her ulcer 06/18/16 update: A/P: 1. Discontinue Brilinta. 2. Do not give aspirin. 3. Continue to monitor hematocrit. 4. Continue to monitor for S/S of ischemia. 5. Post 1 unit packed red blood cell infusion 06/17/16 with no improvement in hematocrit. Dark, black stool reported per patient overnight and has increased in frequency. Will transfuse 1 unit packed red blood cells today. Will speak with sewing machine tester from [facility] if family wishes to proceed with transfer and when this information is provided, we will proceed from there. 6. I Call [facility] for assistance. The career orientation teacher, Dr. Gilliam, said our approach was correct--using some in thieinopyridine is a freshly placed stent, knowing the risk of stent thrombosis is high without it. He felt like we need to get GI to help in controlling the bleed. I then talked with Dr. Dinesh Miller , [facility]. He also wanted to me to make sure the black or dark stool was in fact blood. Will check stool guaiacs. The lack of rise of the hematocrit after a unit of blood would suggest it is blood. He suggested that the next approach would be a scope and clip the ulcer. If it then rebleeds, radiology would have a marker to see where they can embolize the vessel. The ulcer is in the prepylorus. I then called Dr. Tang. He had discussed [facility]'s thoughts. He said he could put a clip but he thought it might fall off in a few days and might not be as helpful. He also felt also shallow and may heal more quickly if we give it some time. He considered a clip or embolization would cause ischemia and slow down healing. Thus, our collected plan was to hold the Brilinta for 48 hours. It should continue to "protect" stent for now, from his residual effects. We will give blood as needed. At that point, we will rebolus with the Brilinta,[ career orientation teacher at [facility] felt like changing to Plavix might not be any more beneficial or bleed less] and then watch her. If she then bled he would place a clip and see if it stop the bleeding. If it is not, we will get interventional radiology to do an embolization of the artery to that artery location of the stomach. The above was discussed with the patient, the patient's nurse, and the patient' s sister by recording. All agree with the plan. At this point, we will not transfer her to [facility]. 06/19/16: Assessment/plan/recommendation: No blood in the stool or dark stool. She is cleaned out well. Her hematocrit went up slightly with the blood. Will watch daily hematocrit. Her blood pressure is under reasonable control. If she bleeds again we will clip the bleeding site and consider getting a radiology to embolize that artery to this ulcer. Our assessment and plan was discussed at length with the patient, her sister, her mother, and other family members present. They voiced understanding and agree with the plan. Current Visit: Yes (2) Gastrointestinal hemorrhage with melena Status: Acute Assessment and plan: Acute onset of melena, black tarry stools on Tuesday. EGD 06/15 with gastric ulcer actively bleeding. This was treated with epinephrine injection and cauterization. Colonscopy 06/16 did not identify source of bleeding. Current Visit: Yes (3) Acute blood loss anemia Status: Acute Assessment and plan: Monitor H&H closely. Continue to hold antiplatelet medications. Blood transfusion as needed. Monitor vital signs closely. HCT has drifted down downward over past 24 hours. This morning is 25.5%, and she will be transfused with 1 unit PRBC. Current Visit: Yes (4) Chest pain Status: Acute Assessment and plan: This has resolved, and no further chest pain since presentation. Twelve-lead EKG and blood work negative for findings of ACS or other cardiac ischemia. Chest pain most likely related to significant anemia and volume depletion. Current Visit: No (5) Hypomagnesemia Status: Acute Assessment and plan: Resolved. Mag level is 2.2. Current Visit: Yes (6) Hypertension Status: Chronic Assessment and plan: Since improvement of anemia post blood transfusion, hypotension has resolved and she is noted to be hypertensive. Resume medication. Current Visit: No (7) Cigarette smoker Status: Acute Assessment and plan: She was recently discharged from hospital with NicoDerm. Tobacco cessation and benefits of it has been emphasized. Current Visit: Yes (8) Diarrhea Status: Acute Current Visit: Yes (9) Dysphagia Status: Acute Current Visit: Yes (10) Diabetes Status: Chronic Current Visit: No (11) Lupus Status: Chronic Current Visit: No (12) Duodenal ulcer Status: Acute Current Visit: Yes Cardiology - PN: Subj Interval history: No chest pain or shortness of breath. She has not noticed any blood or tarry stools the MiraLAX is clean her out well.. Exam (Progress Note) - Constitutional Vitals: Period Temp Pulse Resp BP Sys/Grider Pulse Ox Last 24 Hr 97.2 F-97.8 F 63-84 12-20 123-162/73-85 96-100 Exam: HEENT: Pupils equal, reactive to light and accommodation Neck: NoJVD or bruit Lungs clear to auscultation Heart: Regular rhythm rate with normal S1 and S2. Apical S4 Abdomen: No hepatosplenomegaly Spine/extremities: No clubbing, cyanosis, or edema Neuro: Nonfocal Psych: No depression or anxiety Result/EKG - Labs CBC & BMP: 06/19/16 04:00 06/19/16 04:00 Lab Results: I have reviewed the past 24 hour labs Labs: Laboratory Results - last 24 hr 06/14/16 06/18/16 06/18/16 19:50 10:50 19:28 WBC RBC Hgb Hct MCV MCH MCHC RDW Plt Count MPV Neut % (Auto) Lymph % (Auto) [place] % (Auto) Eos % (Auto) Baso % (Auto) Neut # (Auto) Lymph # (Auto) [place] # (Auto) Eos # (Auto) Baso # (Auto) Immature Gran % Nucleated RBC % Immature Gran # Nucleated RBCs # Sodium Potassium Chloride Carbon Dioxide Anion Gap BUN Creatinine GFR Calculation BUN/Creatinine Ratio Glucose POC Glucose 366 H Calculated Osmolality Calcium Blood Type O POSITIVE Antibody Screen Negative Crossmatch See Detail See Detail 06/19/16 06/19/16 06/19/16 04:00 04:00 07:47 WBC 11.4 RBC 3.37 L Hgb 9.6 L Hct 28.6 L MCV 84.9 L MCH 29 MCHC 33.6 RDW 15.3 Plt Count 183 MPV 10.0 Neut % (Auto) 82.2 H Lymph % (Auto) 7.1 L [place] % (Auto) 8.8 Eos % (Auto) 0.0 Baso % (Auto) 0.1 Neut # (Auto) 9.4 H Lymph # (Auto) 0.8 L [place] # (Auto) 1.0 H Eos # (Auto) 0.0 Baso # (Auto) 0.0 Immature Gran % 1.8 Nucleated RBC % 0.0 Immature Gran # 0.21 Nucleated RBCs # 0.00 Sodium 147 H Potassium 4.1 Chloride 116 H Carbon Dioxide 21 Anion Gap 14.1 BUN 30 H Creatinine 1.00 GFR Calculation 77 BUN/Creatinine Ratio 30.00 H Glucose 199 H POC Glucose 176 H Calculated Osmolality 303.4 Calcium 8.2 L Blood Type Antibody Screen Crossmatch 06/19/16 06/19/16 11:24 16:26 WBC RBC Hgb Hct MCV MCH MCHC RDW Plt Count MPV Neut % (Auto) Lymph % (Auto) [place] % (Auto) Eos % (Auto) Baso % (Auto) Neut # (Auto) Lymph # (Auto) [place] # (Auto) Eos # (Auto) Baso # (Auto) Immature Gran % Nucleated RBC % Immature Gran # Nucleated RBCs # Sodium Potassium Chloride Carbon Dioxide Anion Gap BUN Creatinine GFR Calculation BUN/Creatinine Ratio Glucose POC Glucose 143 H 390 H Calculated Osmolality Calcium Blood Type Antibody Screen Crossmatch - EKG EKG results: interpreted by me Quality Measures - VTE Deep Vein Thrombosis/Pulmonary Embolism Present on Admission: No Contraindication to Pharmacological VTE Prophylaxis: Already on Theraputic Agent , No Prophylaxis Needed Specialty Discharge - Follow Up or Referrals Follow up with: Mark Ortez MD [Physician] - (EGD by Dr. Ortez at [facility] on Tuesday, August 09, at 6AM. Nothing to eat or drink after midnight prior to procedure.)
[2016-06-20 05:13] LABS: Basophils % 0.1 % (0.0-0.8); Hematocrit 28.6 VOL% (35.7-47.0); Hemoglobin 9.7 GM/DL (12.0-16.0); Immature Granulocytes Absolute 0.29 #; Mean Corpuscular HGB Conc 33.9 GM/DL (32-36); Mean Corpuscular Hemoglobin 29 PG (27-34); Mean Corpuscular Volume 85.4 FL (87-102); Monocytes # 0.9 10*3/uL (0.11-0.8); Monocytes % 9.8 % (1.7-12.7); NRBC # 0.02 10*3/uL; Neutrophils # 7.4 10*3/uL (1.4-7.4); Neutrophils % 77.1 % (38.7-73.9); Platelet Count 204 T/CUMM (130-400); Red Blood Count 3.35 MC/CUMM (3.8-5.5); Red Cell Distribution Width 15.5 % (9.3-17.3); White Blood Count 9.6 T/CUMM (4-12)
--- NOTE | 2016-06-20 08:07 | Hospitalist Progress Note ---
Assessment and Plan - Time spent with patient Time spent with patient: Less than 30 minutes (1) Acute blood loss anemia Status: Acute Assessment and plan: Patient has acute blood loss anemia secondary to GI bleed. Have consulted GI, begun IV proton pump inhibitor, and will transfuse to achieve a hemoglobin of 9- 10 with her underlying coronary disease. 06/19/16: Hospital course and findings have been noted. Continue current management and follow hemoglobin and hematocrit and transfuse as needed. She is currently stable with no evidence of recurrent blood loss at this time. 06/20/16: H&H currently stable. Continue to follow and transfuse as needed. Current Visit: Yes (2) GI bleed Status: Acute Assessment and plan: Patient has evidence of upper GI bleed with acute blood loss anemia. She will be placed in the ICU and transfused to achieve a hemoglobin of 9-10. Will begin IV proton pump inhibitors and consult gastroenterology for possible upper endoscopy. 06/19/16: Patient had upper endoscopy noting a gastric ulcer in which Dr. Ortez controlled the bleeding with cauterization and BiCAP therapy. Continuing proton pump inhibitor and at present or withholding any anticoagulants. 06/20/16: Continuing proton pump inhibitor. Plans to restart Brilinta and watch and wait have been discussed with the patient's and discussed in detail and Dr. Gutierrez's and Pérez's notes. Current Visit: Yes (3) UTI (urinary tract infection) Status: Acute Assessment and plan: Patient has evidence of UTI and is received a dose of IV Rocephin at the outlying facility. We will continue for now and await cultures. 06/19/16: Patient has received IV Rocephin and should have completed treatment at this time. Cultures were not available. Repeat UA will be performed. 06/20/16: Awaiting follow-up UA C&S. Current Visit: Yes (4) Chest pain Status: Acute Assessment and plan: Patient has chest pain with recent coronary stenting. This is likely secondary to demand secondary to her severe blood loss anemia. Will transfuse, consult cardiology, obtain serial cardiac isoenzymes and EKGs. 06/19/16: Patient has no complaints of chest pain at this time. Cardiology is following and assisting with her medical therapy. Appreciate Dr. Biggs's assistance. 06/20/16: No further chest pain. Cardiology continues to follow. Current Visit: No (5) Diabetes Status: Chronic Assessment and plan: Patient has diabetes mellitus. Will continue her routine insulin dose with Accu -Cheks and sliding scale. 06/19/16: Continuing current medical regimen and sliding scale insulin therapy. 06/20/16: Continuing to optimize medical therapy while here. Current Visit: No (6) Lupus Status: Chronic Assessment and plan: Patient has lupus and is on chronic corticosteroids. I will hold her n.p.o. for now and provide IV corticosteroids. 06/19/16: Patient is doing well and has been converted from IV Solu-Medrol to oral prednisone at this time. We will continue current regimen and follow. Current Visit: No Hospitalist: Subjective Interval history: Patient is doing well this morning. She has some difficulty with eating with some discomfort in her epigastrium but denies any nausea, vomiting, diarrhea, constipation, further GI bleeding. Exam - Constitutional Vitals: Period Temp Pulse Resp BP Sys/Grider Pulse Ox Last 24 Hr 97.6 F-97.9 F 64-98 18-20 124-158/72-80 96-100 General appearance: no acute distress - Head Head exam: Present: normocephalic, atraumatic - Eye Eye exam: Present: EOMI Pupils: Present: NAVJOT - ENT ENT exam: Present: normal exam - Neck Neck exam: Present: normal inspection - Respiratory Respiratory exam: Present: clear to auscultation bilaterally. Absent: rales, rhonchi, wheezes - Cardiovascular Cardiovascular exam: Present: regular rate and rhythm. Absent: tachycardia - GI/Abdominal GI/Abdominal exam: Present: normal bowel sounds, soft. Absent: distended, tenderness, rebound - Extremities Exam Extremities exam: Present: normal inspection - Back Exam Back exam: Present: normal inspection - Neurological Exam Neurological exam: Present: alert, oriented X3, CN II-XII intact. Absent: motor sensory deficit - Psychiatric Psychiatric exam: Present: normal affect, normal mood. Absent: agitated, anxious - Skin Skin exam: Present: warm, dry. Absent: rash Results - Labs CBC & BMP: 06/20/16 04:00 06/19/16 04:00 Lab Results: I have reviewed the past 24 hour labs Quality Measures - VTE Deep Vein Thrombosis/Pulmonary Embolism Present on Admission: No Contraindication to Pharmacological VTE Prophylaxis: Already on Theraputic Agent , No Prophylaxis Needed Specialty Discharge - Follow Up or Referrals Follow up with: Mark Ortez MD [Physician] - (EGD by Dr. Ortez at [facility] on Tuesday, August 09, at 6AM. Nothing to eat or drink after midnight prior to procedure.)
[2016-06-20] MEDS: INSULIN REGULAR 100 UNIT/ML SUBCUT SCH ×4 (08:59→20:44)
[2016-06-20] MEDS: POLYETHYLENE GLYCOL POWDER 17 GM PACK PO SCH ×2 (09:30→20:33)
[2016-06-20] MEDS: amLODIPine 10 MG TABLET PO SCH (09:30)
[2016-06-20] MEDS: HYDROXYCHLOROQUINE 200 MG TABLET PO SCH ×2 (09:31→20:32)
[2016-06-20] MEDS: LOSARTAN 50 MG TABLET PO SCH (09:31)
[2016-06-20] MEDS: CARVEDILOL 25 MG TABLET PO SCH ×2 (09:31→16:59)
[2016-06-20] MEDS: predniSONE 10 MG TABLET PO SCH ×2 (09:31→20:36)
[2016-06-20] MEDS: PANTOPRAZOLE 40 MG TABLET PO SCH ×2 (09:31→20:32)
--- NOTE | 2016-06-20 12:18 | Cardiology Progress Note ---
Assessment and Plan (1) S/P right coronary artery (RCA) stent placement Problem details: Done about 06/11/16, very recent Status: Acute Assessment and plan: Underwent successful PCI of mid right coronary artery using a 2.25 x 8 mm Xience drug-eluting stent on 06/11/16. Dual antiplatelet therapy was initiated using Brilinta and aspirin. Monitor closely for signs or symptoms of ACS. Status post EGD with bleeding gastric ulcer injected with epinephrine and cauterized. Colonscopy yesterday did not found additional source of bleeding. Brilinta loading dose 180 mg x 1 by mouth reintroduced yesterday afternoon. 06/17/16 update: A/P: 1.Discussed care with Dr. Ortez this morning. HCT decreased to 25.5 this morning. Agree with 1 unit PRBC this morning. 2. Continue Brilinta 90 mg by mouth twice daily. 3.Do not give Lovenox or ASA. 4.Monitor hemodynamic carefully. 5.Monitor for s/s of ischemia. 6.Continue antihypertensive rx 7.Monitor H/H closely & overt bleeding. 8. I discussed with the patient about watching for any signs or symptoms of bleeding, such as black stool or blood in stool. If she has that occur she needs to promptly be seen in the emergency room. She voices understanding. When she sees Dr. Trent Major in follow-up he will be checking some labs, probably a CBC and a chemistry. She will need to be on single antiplatelet therapy, without aspirin, because of her ulcer 06/18/16 update: A/P: 1. Discontinue Brilinta. 2. Do not give aspirin. 3. Continue to monitor hematocrit. 4. Continue to monitor for S/S of ischemia. 5. Post 1 unit packed red blood cell infusion 06/17/16 with no improvement in hematocrit. Dark, black stool reported per patient overnight and has increased in frequency. Will transfuse 1 unit packed red blood cells today. Will speak with telecommunications project manager from [facility] if family wishes to proceed with transfer and when this information is provided, we will proceed from there. 6. I Call [facility] for assistance. The foundry supervisor, Dr. Gilliam, said our approach was correct--using some in thieinopyridine is a freshly placed stent, knowing the risk of stent thrombosis is high without it. He felt like we need to get GI to help in controlling the bleed. I then talked with Dr. Dinesh Miller , [facility]. He also wanted to me to make sure the black or dark stool was in fact blood. Will check stool guaiacs. The lack of rise of the hematocrit after a unit of blood would suggest it is blood. He suggested that the next approach would be a scope and clip the ulcer. If it then rebleeds, radiology would have a marker to see where they can embolize the vessel. The ulcer is in the prepylorus. I then called Dr. Tang. He had discussed [facility]'s thoughts. He said he could put a clip but he thought it might fall off in a few days and might not be as helpful. He also felt also shallow and may heal more quickly if we give it some time. He considered a clip or embolization would cause ischemia and slow down healing. Thus, our collected plan was to hold the Brilinta for 48 hours. It should continue to "protect" stent for now, from his residual effects. We will give blood as needed. At that point, we will rebolus with the Brilinta,[ foundry supervisor at [facility] felt like changing to Plavix might not be any more beneficial or bleed less] and then watch her. If she then bled he would place a clip and see if it stop the bleeding. If it is not, we will get interventional radiology to do an embolization of the artery to that artery location of the stomach. The above was discussed with the patient, the patient's nurse, and the patient' s sister by recording. All agree with the plan. At this point, we will not transfer her to [facility]. 06/19/16: Assessment/plan/recommendation: No blood in the stool or dark stool. She is cleaned out well. Her hematocrit went up slightly with the blood. Will watch daily hematocrit. Her blood pressure is under reasonable control. If she bleeds again we will clip the bleeding site and consider getting a radiology to embolize that artery to this ulcer. Our assessment and plan was discussed at length with the patient, her sister, her mother, and other family members present. They voiced understanding and agree with the plan. 06/20/16-assessment/plan/recommendation: Hematocrit is stable. She is continue to have some black stool. Dr. Ortez thinks it is probably due to the prior blood she is lost. The fact she has not dropped her hct is indicative is that is not actively bleeding. Also her vital signs are stable. The plan at this point we do to start Brilinta 90 mg p.o. now and then 90 mg twice daily and watch hematocrit on this option. We have a plan for if she rebleeds. The above was discussed with the patient, her mother, and Dr. Ortez. We all agree with the plan. Current Visit: Yes (2) Gastrointestinal hemorrhage with melena Status: Acute Assessment and plan: Acute onset of melena, black tarry stools on Tuesday. EGD 06/15 with gastric ulcer actively bleeding. This was treated with epinephrine injection and cauterization. Colonscopy 06/16 did not identify source of bleeding. Current Visit: Yes (3) Acute blood loss anemia Status: Acute Assessment and plan: Monitor H&H closely. Continue to hold antiplatelet medications. Blood transfusion as needed. Monitor vital signs closely. HCT has drifted down downward over past 24 hours. This morning is 25.5%, and she will be transfused with 1 unit PRBC. Current Visit: Yes (4) Chest pain Status: Acute Assessment and plan: This has resolved, and no further chest pain since presentation. Twelve-lead EKG and blood work negative for findings of ACS or other cardiac ischemia. Chest pain most likely related to significant anemia and volume depletion. Current Visit: No (5) Hypomagnesemia Status: Acute Assessment and plan: Resolved. Mag level is 2.2. Current Visit: Yes (6) Hypertension Status: Chronic Assessment and plan: Since improvement of anemia post blood transfusion, hypotension has resolved and she is noted to be hypertensive. Resume medication. Current Visit: No (7) Cigarette smoker Status: Acute Assessment and plan: She was recently discharged from hospital with NicoDerm. Tobacco cessation and benefits of it has been emphasized. Current Visit: Yes (8) Diarrhea Status: Acute Current Visit: Yes (9) Dysphagia Status: Acute Current Visit: Yes (10) Diabetes Status: Chronic Current Visit: No (11) Lupus Status: Chronic Current Visit: No (12) Duodenal ulcer Status: Acute Current Visit: Yes Cardiology - PN: Subj Interval history: No chest pain or shortness of breath. She does have some black stool Exam (Progress Note) - Constitutional Vitals: Period Temp Pulse Resp BP Sys/Grider Pulse Ox Last 24 Hr 97.2 F-97.9 F 70-98 18-20 124-154/72-78 99-100 Exam: HEENT: Pupils equal, reactive to light and accommodation Neck: NoJVD or bruit Lungs clear to auscultation Heart: Regular rhythm rate with normal S1 and S2. Apical S4 Abdomen: No hepatosplenomegaly Spine/extremities: No clubbing, cyanosis, or edema Neuro: Nonfocal Psych: No depression or anxiety Result/EKG - Labs CBC & BMP: 06/20/16 04:00 06/19/16 04:00 Lab Results: I have reviewed the past 24 hour labs Labs: Laboratory Results - last 24 hr 06/19/16 06/19/16 06/20/16 16:26 20:14 04:00 WBC 9.6 RBC 3.35 L Hgb 9.7 L Hct 28.6 L MCV 85.4 L MCH 29 MCHC 33.9 RDW 15.5 Plt Count 204 MPV 10.0 Neut % (Auto) 77.1 H Lymph % (Auto) 10.0 L [place] % (Auto) 9.8 Eos % (Auto) 0.0 Baso % (Auto) 0.1 Neut # (Auto) 7.4 Lymph # (Auto) 1.0 L [place] # (Auto) 0.9 H Eos # (Auto) 0.0 Baso # (Auto) 0.0 Immature Gran % 3.0 Nucleated RBC % 0.2 Immature Gran # 0.29 Nucleated RBCs # 0.02 POC Glucose 390 H 170 H 06/20/16 06/20/16 07:49 11:23 WBC RBC Hgb Hct MCV MCH MCHC RDW Plt Count MPV Neut % (Auto) Lymph % (Auto) [place] % (Auto) Eos % (Auto) Baso % (Auto) Neut # (Auto) Lymph # (Auto) [place] # (Auto) Eos # (Auto) Baso # (Auto) Immature Gran % Nucleated RBC % Immature Gran # Nucleated RBCs # POC Glucose 115 H 177 H Quality Measures - VTE Deep Vein Thrombosis/Pulmonary Embolism Present on Admission: No Contraindication to Pharmacological VTE Prophylaxis: Already on Theraputic Agent , No Prophylaxis Needed Specialty Discharge - Follow Up or Referrals Follow up with: Mark Ortez MD [Physician] - (EGD by Dr. Ortez at [facility] on Tuesday, August 09, at 6AM. Nothing to eat or drink after midnight prior to procedure.)
[2016-06-20 13:02] LABS: Apearance,Urine CLEAR (Clear); Bilirubin,Urine Negative (Negative); Blood, Urine Negative (Negative); Glucose,Urine (UA) Negative (Negative); Ketones,Urine Negative (Negative); Nitrite,Urine Negative (Negative); Protein,Urine Negative; RBC,Urine 2 /HPF (0-4); Squamous Epithelial Cell,Urine Occasional /HPF (0-10); Urine Color Yellow (Yellow); Urine Specific Gravity 1.013 (1.001-1.035); Urine Urobilinogen < 2.0 EU/DL (0.2-1.0); WBC,Urine 4 /HPF (0-6)
[2016-06-20] MEDS: TICAGRELOR 90 MG TABLET PO SCH ×2 (13:14→20:32)
--- NOTE | 2016-06-20 13:14 | Gastrointestinal Progress Note ---
Assessment and Plan (1) Gastric ulcer with hemorrhage Status: Acute Assessment and plan: This patient underwent colonoscopy today that was negative for bleeding source. The blood loss appears to be secondary to a 1.3 cm ulcer in her prepyloric region which was weeping blood actively yesterday before injection with epinephrine and cauterization using BiCAP cautery. This patient is at high risk for rebleeding unfortunately for a unknown duration of time. It is suggested she undergo repeat upper endoscopy in 2 months. Concerning her anticoagulation: It is my suggestion to use something that has either a short half-life such as Lovenox or perhaps use Pradaxa if she has to be placed back on something immediately. The Pradaxa is a direct thrombin inhibitor which has a reversal agent, Praxabind (we have 1 dose in the hospital, but that is all it would take to reverse the patient by report from the pharmacy). 06/17/16--This case discussed extensively with Dr. Biggs, he is initiated Brilinta again and we are watching the patient. She has not had any further melena. Her hematocrit has drifted down to 25.5% and I am going to initiate 1 further unit of blood to try and keep her towards 30%. If she is stable later on today versus tomorrow she could certainly be discharged to watch herself for further melena. The biopsies from the stomach of come back and demonstrate no evidence of Helicobacter pylori. She will need to stay off the aspirin for the present time and for the next 2 months before reinitiating this hopefully at a lower dose. A prescription for Protonix 40 mg twice daily has also been left in the front of her chart. This should be used at least for the next 2 months upon discharge. It would likely be helpful to use this once a day after that prior to suppertime to protect her stomach in the future as well. 06/18/16--The nursing staff states that the patient was transfused another unit of blood yesterday. This is not reflected by the blood bank tab in the EMR which states that the unit of blood is ready but not given. The patient states that she has started having dark stools again, if she was given the blood and we know that she has a ulcer that was recently treated the Brilinta may be causing further GI bleeding and may need to be held again in order to keep immediate GI bleeding from occurring. I will leave this to Dr. Biggs. She will need a repeat upper endoscopy in 8 weeks. She can continue oral intake. Outside of discontinuation of the anticoagulation for a longer period of time I have no other further recommendations and will sign off at this point. 06/19/16--The patient and her sister were seen during rounds today. The complexity of the situation was explained to them as well as alternatives and options. Reasons for current therapeutic course were explained at length. The plan remains to observe the patient until she can get her Brilinta once more Tuesday and observe to see if repeat upper endoscopy will be required Tuesday morning. Hopefully the MiraLAX will be successful at flushing the patient doubt of her current melena but we will be following her hematocrit as well status post 1 unit of blood given. Her hematocrit of 25.8 now up to 28.6 posttransfusion. 06/20/16--the patient's hematocrit is exactly the same as it was yesterday. She is due to restart her Brilinta at this point. We will be watching the patient' s hematocrit and hemoglobin to see if this remains the same over the next 24-48 hours. If the patient has dropped significantly tomorrow morning (i.e. down to 24% or below) we will plan on performing upper endoscopy and reexamining the area to see if Endoclipping or other intervention will be required. It is my firm hope that we will not have to do anything additional at this point. Current Visit: Yes (2) Gastrointestinal hemorrhage with melena Status: Acute Assessment and plan: This patient has recent stent placement for right coronary artery disease. She was released on a combination of aspirin and Brilinta and developed melena as an outpatient with hematocrit drop from 26% to 14.6%. This being said, the patient also had periumbilical pain and diarrhea prior to coming in with a weight loss of some 30 pounds even prior to stent placement. I am concerned that there may be more than 1 source of bleeding in this patient--we will probably want to follow the upper endoscopy with a colonoscopy on 06/16/16 given the above concerns. Differential diagnosis considering the patient has dysphasia or several including esophageal and gastric cancer but also esophagitis, gastritis, peptic ulcer disease, duodenitis and sprue. She likely has some anemia secondary to chronic disease with her lupus as well. We will proceed with upper endoscopy today in order to evaluate that portion of her GI tract and follow this with colonoscopy tomorrow as mentioned. Risks of the procedure include but are not limited to: Bleeding, infection, perforation, cardiac and pulmonary compromise with cardiac difficulties being higher now that she has been stented and is off of anticoagulation. The patient understands and is willing to proceed. 06/16/16--the patient ended up having a gastric ulcer that was the cause for her bleeding yesterday, actively weeping blood, please see the above comments if she needs to restart anticoagulation in the near future due to concerns over stent clotting. Her colon is clean and she does not need to worry about a lower GI bleeding source. She incidentally was noted to have some diverticulosis in the sigmoid and moderate size internal and external hemorrhoids. 06/17/16--The patient will require repeat upper endoscopy in 8 weeks. We will write an order for this. This can be done on Brilinta--as the biopsies are already obtained. 06/18/16--prescription for Protonix written and are in the chart, follow-up repeat endoscopy in 8 weeks, again if the patient is having active blood in her stool now Dr. Biggs may wish to hold off on the Brilinta, switch to another agent such as Plavix, switch to Pradaxa, switch to Lovenox, or simply hold off on all anticoagulation for a period and restart the Brilinta again after some healing takes place. Repeat endoscopy with further trauma of the ulcer is not going to be helpful. 06/19/16--Protonix continuous, encourage p.o. intake today. The plan is to observe the patient after Brilinta is given at 48 hours i.e. Tuesday night and see if ongoing bleeding is seen with potential upper endoscopy Tuesday. I will make the patient n.p.o. in anticipation of potential repeat endoscopy at that time. 06/20/16--Depending on results of the hematocrit and hemoglobin over the evening time we may proceed with repeat upper endoscopy tomorrow morning. Current Visit: Yes (3) Dysphagia Status: Resolved Assessment and plan: Patient states that food gets stuck in her distal esophagus and if we discover a stricture we will likely dilate in order to ensure that she has good swallowing capabilities in the future now that she is off of anticoagulation for the short-term. If there is esophageal cancer we will likely take biopsies and refer for appropriate treatment. 06/16/16--the patient is doing well status post dilation yesterday. I will restart her on a solid cardiac diet as tolerated. 06/17/16--No further dysphagia noted, the patient is tolerating a cardiac diet well. 06/18/16--Patient is doing adequately at this time as far as swelling goes, repeat upper endoscopy in 8 weeks, I do not anticipate requiring another dilation or biopsies at that time. Please let me know if I can be of further help. 06/19/16--No further problems. Current Visit: Yes Gastroenterology - PN: Subj Interval history: Black stools are continuing, this may be the patient purging from her earlier bleed. This can occur up to 7 days post GI bleed. She has no new complaints and her hematocrit is completely steady from yesterday. Exam (Progress Note) - Constitutional Vitals: Period Temp Pulse Resp BP Sys/Grider Pulse Ox Last 24 Hr 97.2 F-98.5 F 70-98 18-20 112-154/66-78 99-100 General appearance: no acute distress - Eye Eye exam: Present: EOMI Pupils: Present: NAVJOT - Respiratory Respiratory exam: Present: clear to auscultation bilaterally - GI/Abdominal GI/Abdominal exam: Present: normal bowel sounds, soft. Absent: distended, tenderness, rebound - Extremities Exam Extremities exam: Present: normal inspection. Absent: edema - Neurological Exam Neurological exam: Present: alert, oriented X3. Absent: CN II-XII intact - Psychiatric Psychiatric exam: Present: normal affect, normal mood - Skin Skin exam: Present: warm Results - Labs CBC & BMP: 06/20/16 04:00 06/19/16 04:00 Specialty Discharge - Follow Up or Referrals Follow up with: Mark Ortez MD [Physician] - (EGD by Dr. Ortez at [facility] on Tuesday, August 09, at 6AM. Nothing to eat or drink after midnight prior to procedure.)
[2016-06-20] MEDS: cefTRIAXone 1,000 MG in SODIUM CHLORIDE 0.9% 100 ML IV SCH (17:00)
[2016-06-21 04:24] LABS: Basophils % 0.1 % (0.0-0.8); Eosinophils % 0.1 % (0.00-10.9); Hematocrit 28.5 VOL% (35.7-47.0); Hemoglobin 9.6 GM/DL (12.0-16.0); Immature Granulocytes Absolute 0.29 #; Lymphocytes # 0.6 10*3/uL (1.4-4.0); Lymphocytes % 6.4 % (21.3-54.2); Mean Corpuscular HGB Conc 33.7 GM/DL (32-36); Mean Corpuscular Hemoglobin 29 PG (27-34); Mean Corpuscular Volume 85.8 FL (87-102); Monocytes # 0.7 10*3/uL (0.11-0.8); Monocytes % 7.5 % (1.7-12.7); Neutrophils # 7.9 10*3/uL (1.4-7.4); Neutrophils % 82.9 % (38.7-73.9); Platelet Count 210 T/CUMM (130-400); Red Blood Count 3.32 MC/CUMM (3.8-5.5); Red Cell Distribution Width 15.6 % (9.3-17.3); White Blood Count 9.6 T/CUMM (4-12)
[2016-06-21 04:51] LABS: Potassium 4.1 MMOL/L (3.5-5.1)
--- NOTE | 2016-06-21 08:58 | Discharge Summary ---
<[place] - Last Filed: 06/21/16 08:59> Hospital Course - Hospital Course Hospital Course: Ms. Yeager is a 51-year-old female with a history of lupus, diabetes mellitus, recent PCI to RCA who presented to the emergency room with complaints of GI bleed, chest pain with associated shortness of breath and UTI that was being treated with Rocephin. She was admitted to the hospital medicine service for further evaluation and treatment. She was admitted directly to the ICU, had a central line placed in the right internal jugular and was transfused with 2 units of PRBCs and started on IV PPIs. GI was consulted, and the patient received an upper EGD which revealed weeping ulcer likely due to NSAID use. The following day, the patient received a colonoscopy which revealed mid left- sided diverticulosis which was previously known to the patient. Cardiology was also consulted to manage patient's arrhythmia and monitor her anticoagulation. Due to her GI interventions, the patient's Brilinta was held while H&H improved. Patient continued to improve throughout her course with little complaints. At this time, she is reached maximum benefit from hospitalization will be discharged to home with appropriate follow-up recommendations. - Time spent with patient Time with patient DS: Greater than 30 minutes Specialty Discharge - Follow Up or Referrals Follow up with: Mark Ortez MD [Physician] - (EGD by Dr. Ortez at [facility] on Tuesday, August 09, at 6AM. Nothing to eat or drink after midnight prior to procedure.) Discharge Plan - Discharge Data Disposition: Disch To Home/Self Care - Discharge Medications Continue Nicotine 14 mg/24 Hr Patch [Nicoderm CQ 14 mg/24 hr Patch] 1 patch TRANSDERM DAILY Levocetirizine Dihydrochloride [Xyzal] 5 mg PO BEDTIME Insulin Glargine [Lantus] 20 unit SUBCUT BEDTIME Hydromorphone HCl 8 mg PO BID PRN PRN Reason: Pain Moderate To Severe (4-10) Dicyclomine Cap/Tab [Bentyl Cap/Tab] 20 mg PO QID PRN PRN Reason: Constipation predniSONE TAB [PredniSONE] 10 mg PO BID Hydroxychloroquine [Plaquenil] 200 mg PO BID amLODIPine [Norvasc] 10 mg PO DAILY Glipizide [Glipizide Xl] 10 mg PO BID Carvedilol [Coreg] 25 mg PO BID W/MEALS #60 tablet Ticagrelor [Brilinta] 90 mg PO BID #60 tablet Fluticasone 50 Mcg Nasal [place] [Flonase Nasal [place]] 1 spray BOTH NARES BID PRN PRN Reason: Allergy Symptoms ALPRAZolam [Xanax] 0.5 mg PO BID Losartan [Cozaar] 50 mg PO DAILY #30 tablet Esomeprazole Magnesium [Nexium] 40 mg PO BID #60 tablet Discontinued Aspirin [Ecotrin] 325 mg PO DAILY Nicotine [Nicotrol Ns] 11 mg TOP Q24H - Follow Up or Referral Follow Up: Sree Major MD [Physician] - 1 Week (cbc, cmp, mg EKG ) Mark Ortez MD [Physician] - (EGD by Dr. Ortez at [facility] on Tuesday, August 09, at 6AM. Nothing to eat or drink after midnight prior to procedure.) Cheryl Marroquin M.D. [Physician] - 06/29/16 (as scheduled) - Forms/Instructions Exam - Constitutional Vitals: Period Temp Pulse Resp BP Sys/Grider Pulse Ox Last 24 Hr 98 F-98.6 F 75-93 18-20 112-132/66-86 99-100 Discharge Results Procedures and tests throughout hospitalization: Pending Orders 06/14/16 19:50 Red Blood Cells Leuko Red Stat Type and Screen Stat Labs on day of discharge: Labs from last 24 hours 06/21/16 06/21/16 06/20/16 04:00 03:20 20:30 WBC 9.6 RBC 3.32 L Hgb 9.6 L Hct 28.5 L MCV 85.8 L MCH 29 MCHC 33.7 RDW 15.6 Plt Count 210 MPV 10.0 Neut % (Auto) 82.9 H Lymph % (Auto) 6.4 L [place] % (Auto) 7.5 Eos % (Auto) 0.1 Baso % (Auto) 0.1 Neut # (Auto) 7.9 H Lymph # (Auto) 0.6 L [place] # (Auto) 0.7 Eos # (Auto) 0.0 Baso # (Auto) 0.0 Immature Gran % 3.0 Nucleated RBC % 0.0 Immature Gran # 0.29 Nucleated RBCs # 0.00 Sodium 143 Potassium 4.1 Chloride 110 H Carbon Dioxide 23 Anion Gap 14.1 BUN 26 H Creatinine 1.10 H GFR Calculation 66 BUN/Creatinine Ratio 23.00 H Glucose 282 H POC Glucose 281 H Calculated Osmolality 299.0 Calcium 8.0 L Urine Color Urine Appearance Urine pH Ur Specific [place] Urine Protein Urine Glucose (UA) Urine Ketones Urine Blood Urine Nitrate Urine Bilirubin Urine Urobilinogen Urine Leukocytes Urine RBC Urine WBC Ur Squamous Epith Cells Ur Culture Indicated? 06/20/16 06/20/16 06/20/16 16:45 12:00 11:23 WBC RBC Hgb Hct MCV MCH MCHC RDW Plt Count MPV Neut % (Auto) Lymph % (Auto) [place] % (Auto) Eos % (Auto) Baso % (Auto) Neut # (Auto) Lymph # (Auto) [place] # (Auto) Eos # (Auto) Baso # (Auto) Immature Gran % Nucleated RBC % Immature Gran # Nucleated RBCs # Sodium Potassium Chloride Carbon Dioxide Anion Gap BUN Creatinine GFR Calculation BUN/Creatinine Ratio Glucose POC Glucose 216 H 177 H Calculated Osmolality Calcium Urine Color Yellow Urine Appearance Clear Urine pH 6.0 Ur Specific [place] 1.013 Urine Protein Negative Urine Glucose (UA) Negative Urine Ketones Negative Urine Blood Negative Urine Nitrate Negative Urine Bilirubin Negative Urine Urobilinogen < 2.0 H Urine Leukocytes Trace Urine RBC 2 Urine WBC 4 Ur Squamous Epith Cells Occasional Ur Culture Indicated? Not indicated DS: Provider Date of admission: 06/14/16 16:44 Primary care physician: . No PCP Attending physician on admission: Hai Ibrahim MD Consults: 06/14/16 14:45 Consult to Physician [CONS] Routine Comment: Consulting Provider: Cardiology - [facility] When should Consulting Provider be notified: Now 06/14/16 17:23 Consult to Dietitian [CONS] Routine Reason for Dietitian: Dietary Consult Discharging clinician: Nabor ORDOÑEZ Expected date of discharge: 06/21/16 <Sera Santoro - Last Filed: 06/21/16 10:49> Hospital Course - Hospital Course Hospital Course: Patient seen and examined. Hospital course reviewed and edited. Weeping ulcer was injected. Bleeding also due to aspirin and brilinta. Patient received a total of 5 units packed red blood cells. Hemoglobin stable at 9.6. Dr. Ortez does not plan any intervention at this time. Patient will need weekly CBCs to monitor her counts. Patient had a recent cardiac cath on 06/11/2016. Dr. Biggs has seen her while in hospital. Dr. Biggs is requested that she not be restarted on her aspirin just on Brilinta. She will need weekly CBCs. Repeat UA negative. Urine cx negative, already received adequate treatment with IV rocephin. Diabetes not well controlled. Follow up with Dr. Major in one week, Dr. Marroquin next week, and Dr. Ortez as scheduled. - Time spent with patient Time with patient DS: Greater than 30 minutes (40 min) Discharge Plan - Discharge Data Condition at Discharge: Stable Discharge Diet: diabetic diet Activity: resume usual activities as tolerated Hygiene: no restrictions Weight Bearing at Discharge: full weight bearing - Forms/Instructions Additional Discharge Instructions: CBC weekly Exam - Constitutional General appearance: normal weight, no acute distress - Respiratory Respiratory exam: Present: clear to auscultation bilaterally. Absent: rhonchi, wheezes - Cardiovascular Cardiovascular exam: Present: regular rate and rhythm - GI/Abdominal GI/Abdominal exam: Present: normal bowel sounds, soft - Extremities Exam Extremities exam: Present: edema (trace)
[2016-06-21] MEDS: INSULIN REGULAR 100 UNIT/ML SUBCUT SCH (11:57)
[2016-06-21] MEDS: POLYETHYLENE GLYCOL POWDER 17 GM PACK PO SCH (11:58)
[2016-06-21] MEDS: HYDROXYCHLOROQUINE 200 MG TABLET PO SCH (11:59)
[2016-06-21] MEDS: amLODIPine 10 MG TABLET PO SCH (11:59)
[2016-06-21] MEDS: LOSARTAN 50 MG TABLET PO SCH (11:59)
[2016-06-21] MEDS: CARVEDILOL 25 MG TABLET PO SCH (12:00)
[2016-06-21] MEDS: PANTOPRAZOLE 40 MG TABLET PO SCH (12:00)
[2016-06-21] MEDS: TICAGRELOR 90 MG TABLET PO SCH (12:01)
[2016-06-21] MEDS: predniSONE 10 MG TABLET PO SCH (12:01)
--- NOTE | 2016-06-21 13:07 | Cardiology Progress Note ---
I, Mitzy Vale RN, am scribing for, and in the presence of, Nelson Wise MD 13:07. Assessment and Plan (1) S/P right coronary artery (RCA) stent placement Problem details: Done about 06/11/16, very recent Status: Acute Assessment and plan: The patient continues clinically stable and she will follow-up with her primary eeg tech Dr. Major Current Visit: Yes Cardiology - PN: Subj Interval history: Ms. Yeager is a 51-year-old black female who recently saw Dr. Major. She has a history of CAD, hypertension, diabetes, and lupus. June 11 of this year patient presented with symptoms of unstable angina and elevated troponin as well as a mildly abnormal EKG. She underwent cardiac catheterization with stent to the mid RCA. Brilinta 90 mg twice daily, carvedilol 25 mg twice daily and losartan 50 mg daily were added to her medication regimen, and she was discharged June 12. June 14 she presented to the emergency department at [facility] in [facility] with complaints of feeling lightheaded, black tarry stool, and hematocrit was around 15. She also reported having some chest pain that was different in the chest pain she had when she had her stent. Hematocrit on admission was 14.3. Dr. Ortez has seen the patient in consult to evaluate and Dr. dent also discussed with physicians at [facility], this is detailed in his notes. She has been given several units of blood products during this admission the last being on June 18. Her Brilinta was restarted yesterday at 90 mg p.o. twice daily. H&H this morning is 9.6 and 28.5. She is seen resting in bed in no acute distress. She denies chest pain, shortness of breath, palpitations, or dizziness. She denies any visible blood in her stool or urine. I have discussed in detail the particulars of this case and I have examined the patient and reviewed the patient's chart both current and old. I was directly involved in the patient's evaluation and management and I completely agree with Mitzy Vale RN regarding this patient's evaluation and treatment plan. Exam (Progress Note) - Constitutional Vitals: Period Temp Pulse Resp BP Sys/Grider Pulse Ox Last 24 Hr 98 F-98.6 F 75-93 18-20 112-132/66-86 99-100 General appearance: normal weight, no acute distress - Head Head exam: Absent: abrasion, hematoma - Eye Eye exam: Absent: periorbital swelling, laceration to eyelids - Respiratory Respiratory exam: Present: clear to auscultation bilaterally. Absent: accessory muscle use, chest wall tenderness - Cardiovascular Cardiovascular exam: Present: regular rate and rhythm - GI/Abdominal GI/Abdominal exam: Present: normal bowel sounds, soft. Absent: distended, tenderness - Extremities Exam Extremities exam: Absent: edema - Neurological Exam Neurological exam: Present: alert, oriented X3 - Psychiatric Psychiatric exam: Present: normal affect, normal mood - Skin Skin exam: Present: warm, dry Result/EKG - Labs CBC & BMP: 06/21/16 04:00 06/21/16 03:20 Lab Results: I have reviewed the past 24 hour labs Labs: Laboratory Results - last 24 hr 06/20/16 06/20/16 06/20/16 11:23 12:00 16:45 WBC RBC Hgb Hct MCV MCH MCHC RDW Plt Count MPV Neut % (Auto) Lymph % (Auto) [place] % (Auto) Eos % (Auto) Baso % (Auto) Neut # (Auto) Lymph # (Auto) [place] # (Auto) Eos # (Auto) Baso # (Auto) Immature Gran % Nucleated RBC % Immature Gran # Nucleated RBCs # Sodium Potassium Chloride Carbon Dioxide Anion Gap BUN Creatinine GFR Calculation BUN/Creatinine Ratio Glucose POC Glucose 177 H 216 H Calculated Osmolality Calcium Urine Color Yellow Urine Appearance Clear Urine pH 6.0 Ur Specific [place] 1.013 Urine Protein Negative Urine Glucose (UA) Negative Urine Ketones Negative Urine Blood Negative Urine Nitrate Negative Urine Bilirubin Negative Urine Urobilinogen < 2.0 H Urine Leukocytes Trace Urine RBC 2 Urine WBC 4 Ur Squamous Epith Cells Occasional Ur Culture Indicated? Not indicated 06/20/16 06/21/16 06/21/16 20:30 03:20 04:00 WBC 9.6 RBC 3.32 L Hgb 9.6 L Hct 28.5 L MCV 85.8 L MCH 29 MCHC 33.7 RDW 15.6 Plt Count 210 MPV 10.0 Neut % (Auto) 82.9 H Lymph % (Auto) 6.4 L [place] % (Auto) 7.5 Eos % (Auto) 0.1 Baso % (Auto) 0.1 Neut # (Auto) 7.9 H Lymph # (Auto) 0.6 L [place] # (Auto) 0.7 Eos # (Auto) 0.0 Baso # (Auto) 0.0 Immature Gran % 3.0 Nucleated RBC % 0.0 Immature Gran # 0.29 Nucleated RBCs # 0.00 Sodium 143 Potassium 4.1 Chloride 110 H Carbon Dioxide 23 Anion Gap 14.1 BUN 26 H Creatinine 1.10 H GFR Calculation 66 BUN/Creatinine Ratio 23.00 H Glucose 282 H POC Glucose 281 H Calculated Osmolality 299.0 Calcium 8.0 L Urine Color Urine Appearance Urine pH Ur Specific [place] Urine Protein Urine Glucose (UA) Urine Ketones Urine Blood Urine Nitrate Urine Bilirubin Urine Urobilinogen Urine Leukocytes Urine RBC Urine WBC Ur Squamous Epith Cells Ur Culture Indicated? - EKG EKG results: interpreted by me EKG shows: sinus rhythm Quality Measures - VTE Deep Vein Thrombosis/Pulmonary Embolism Present on Admission: No Contraindication to Pharmacological VTE Prophylaxis: Already on Theraputic Agent , No Prophylaxis Needed Specialty Discharge - Follow Up or Referrals Follow up with: Cheryl Marroquin M.D. [Physician] - 06/29/16 (as scheduled) Sree Major MD [Physician] - 06/28/16 1:20 pm (cbc, cmp, mg EKG ) Mark Ortez MD [Physician] - (EGD by Dr. Ortez at [facility] on Tuesday, August 09, at 6AM. Nothing to eat or drink after midnight prior to procedure.) IFrandy Wesley, MD, personally performed the services described in this documentation, ascribed by Mitzy Vale RN in my presence, and it is both accurate and complete 307 .
[2016-06-21 13:09] VITALS: BP 124/78
== END 2016-06-21 15:30 | disposition home or self-care (01) | DRG 982 ==
LOC: N.ICU 16:44 → SUATTDRO 16:44 → N.4E 06-16 13:17
PROVIDERS: ADMIT Family Medicine; ATTEND Internal Medicine

== ENCOUNTER 2021-02-26 23:04 | Inpatient (IN) ==
[2021-02-27] MEDS ORDERED: ACETAMINOPHEN 325 MG TABLET PO PRN (00:30)
[2021-02-27] MEDS ORDERED: ALUMINUM/MAGNES/SIMETH MAX STR 30 ML UDCUP PO PRN (00:30)
[2021-02-27] MEDS ORDERED: DEXTROSE 50% 25 GM/50 ML SYRINGE IV PRN (00:30)
[2021-02-27] MEDS ORDERED: hydrALAZINE 20 MG/1 ML VIAL IV PRN (00:30)
[2021-02-27] MEDS ORDERED: GLUCAGON 1 MG VIAL IM PRN (00:30)
[2021-02-27] MEDS ORDERED: MORPHINE 2 MG/1 ML SYRINGE IV PRN (00:30)
[2021-02-27] MEDS ORDERED: ONDANSETRON 4 MG/2 ML VIAL IV PRN (00:30)
[2021-02-27 01:24] LABS: Hematocrit 26.9 VOL% (35.7-47.0); Hemoglobin 8.8 GM/DL (12.0-16.0); Immature Granulocytes % 0.5 %; Immature Granulocytes Absolute 0.05 #; Lymphocytes # 1.1 10*3/uL (1.4-4.0); Lymphocytes % 11.8 % (21.3-54.2); Mean Corpuscular HGB Conc 32.7 GM/DL (32-36); Mean Corpuscular Volume 87.9 FL (87-102); Mean Platelet Volume 9.9 FL (9.6-12.0); Neutrophils % 82.7 % (38.7-73.9); Platelet Count 253 T/CUMM (130-400); Red Blood Count 3.06 MC/CUMM (3.8-5.5); Red Cell Distribution Width 14.6 % (9.3-17.3); White Blood Count 9.7 T/CUMM (4-12)
[2021-02-27 01:36] LABS: INR 1.1; PT Patient Result 12.5 SECS (10.5-12.0); Partial Thromboplastin Time 23.1 SECS (23.8-32.1)
[2021-02-27 01:54] LABS: Albumin 2.2 G/DL (3.4-5.0); Bilirubin,Total 1.2 MG/DL (0.20-1.00); Calcium 7.6 MG/DL (8.5-10.1); Osmolality,Calculated 293.3 MOS/KG (273-304); Potassium 3.2 MMOL/L (3.5-5.1); Risk Ratio 1.54; Thyroid Stimulating Hormone 0.461 uIU/ml (0.358-3.74); Total Protein 5.5 G/DL (6.4-8.2)
[2021-02-27] MEDS ORDERED: POTASSIUM CHLORIDE 20 MEQ TABLET PO PRN (02:05)
[2021-02-27] MEDS ORDERED: MAGNESIUM SULF RIDER 2 GM/50 ML PREMIX IV PRN (02:05)
[2021-02-27] MEDS ORDERED: MAGNESIUM SULF RIDER 4 GM/100 ML PREMIX IV PRN (02:05)
[2021-02-27] MEDS ORDERED: POTASSIUM CHLORIDE RIDER 10 MEQ/100 ML PREMIX IV PRN (02:05)
[2021-02-27] MEDS: FUROSEMIDE 40 MG/4 ML VIAL IV SCH ×2 (02:55→08:45)
[2021-02-27] MEDS ORDERED: POTASSIUM CHLORIDE 20 MEQ TABLET PO ONE (08:02)
[2021-02-27] MEDS ORDERED: MAGNESIUM SULF RIDER 2 GM/50 ML PREMIX IV ONE (08:03)
[2021-02-27] MEDS ORDERED: METOPROLOL SUCCINATE XL 25 MG TABLET PO ONE (08:04)
[2021-02-27] MEDS ORDERED: carvediloL 25 MG TABLET PO ONE (08:06)
[2021-02-27] MEDS: INSULIN REGULAR 100 UNIT/ML SUBCUT SCH ×4 (08:30→21:11)
[2021-02-27] MEDS ORDERED: SODIUM CHLORIDE 0.9% 1,000 ML IV SCH ×2 (08:30→11:00)
[2021-02-27] MEDS ORDERED: PANTOPRAZOLE 40 MG TABLET PO SCH (09:00)
[2021-02-27] MEDS: SODIUM BICARBONATE 650 MG TABLET PO SCH ×3 (10:37→21:10)
[2021-02-27] MEDS: DOCUSATE SODIUM 100 MG CAPSULE PO SCH ×2 (10:38→21:10)
[2021-02-27] MEDS: PANTOPRAZOLE 40 MG TABLET PO SCH ×2 (10:38→21:10)
[2021-02-27] MEDS ORDERED: HEPARIN DRIP 25,000 UNITS/500 ML PREMIX IV SCH (11:00)
[2021-02-27 12:29] LABS: Hepatitis B Core IgM Quant 0.11 Index; Hepatitis B Surface Ag Quant < 0.10 Index; Hepatitis B Surface Ag Result Non-Reactive (NonReactive); Hepatitis C Virus Ab Quant 0.08 Index; Hepatitis C Virus Ab Result Non-Reactive (NonReactive)
[2021-02-27] MEDS: SODIUM CHLORIDE 0.45% 1,000 ML IV SCH (15:41)
[2021-02-27] MEDS: carvediloL 25 MG TABLET PO SCH (21:11)
[2021-02-28 04:11] LABS: Osmolality,Calculated 287.1 MOS/KG (273-304); Potassium 3.2 MMOL/L (3.5-5.1)
[2021-02-28 04:26] LABS: Parathyroid Hormone Intact 271.4 PG/ML (18.4-80.1)
[2021-02-28 04:29] LABS: Uric Acid 8.8 MG/DL (2.6-6.0)
[2021-02-28] MEDS: SODIUM CHLORIDE 0.45% 1,000 ML IV SCH ×2 (05:12→18:36)
[2021-02-28 06:32] LABS: Basophils % 0.1 % (0.0-0.8); Eosinophils # 0.1 10*3/uL (0.0-0.87); Eosinophils % 0.7 % (0.00-10.9); Hematocrit 27.1 VOL% (35.7-47.0); Immature Granulocytes % 0.6 %; Immature Granulocytes Absolute 0.06 #; Lymphocytes # 2.8 10*3/uL (1.4-4.0); Lymphocytes % 28.5 % (21.3-54.2); Mean Corpuscular HGB Conc 33.2 GM/DL (32-36); Mean Corpuscular Volume 86.6 FL (87-102); Mean Platelet Volume 9.9 FL (9.6-12.0); Monocytes % 7.3 % (1.7-12.7); Neutrophils % 62.8 % (38.7-73.9); Platelet Count 277 T/CUMM (130-400); Red Blood Count 3.13 MC/CUMM (3.8-5.5); Red Cell Distribution Width 14.4 % (9.3-17.3); White Blood Count 9.8 T/CUMM (4-12)
[2021-02-28] MEDS ORDERED: METOPROLOL SUCCINATE XL 25 MG TABLET PO SCH (09:00)
[2021-02-28] MEDS: INSULIN REGULAR 100 UNIT/ML SUBCUT SCH ×4 (10:53→22:27)
[2021-02-28] MEDS: SODIUM BICARBONATE 650 MG TABLET PO SCH ×3 (11:10→22:26)
[2021-02-28] MEDS: ROSUVASTATIN 20 MG TABLET PO SCH (11:11)
[2021-02-28] MEDS: PANTOPRAZOLE 40 MG TABLET PO SCH ×2 (11:11→22:26)
[2021-02-28] MEDS: DOCUSATE SODIUM 100 MG CAPSULE PO SCH ×2 (11:11→22:26)
[2021-02-28] MEDS: carvediloL 25 MG TABLET PO SCH ×2 (11:11→22:26)
[2021-02-28] MEDS: MULTIVITAMIN (CENTRUM) TABLET PO SCH (11:11)
[2021-02-28] MEDS: HEPARIN DRIP 25,000 UNITS/500 ML PREMIX IV SCH (11:45)
[2021-02-28] MEDS ORDERED: amLODIPine 5 MG TABLET PO ONE (14:17)
[2021-02-28] MEDS ORDERED: hydrALAZINE 25 MG TABLET PO SCH (15:00)
[2021-02-28] MEDS: SODIUM CHLORIDE 0.45% IV SCH (22:28)
[2021-02-28] MEDS: POTASSIUM PHOSPHATE IV SCH (22:28)
[2021-03-01 13:18] LABS: Folate 12.57 NG/ML (5.38-24.0)
[2021-03-01 13:19] LABS: Basophils % 0.1 % (0.0-0.8); Eosinophils % 0.5 % (0.00-10.9); Hematocrit 26.8 VOL% (35.7-47.0); Hemoglobin 8.8 GM/DL (12.0-16.0); Immature Granulocytes % 0.6 %; Immature Granulocytes Absolute 0.05 #; Lymphocytes # 2.1 10*3/uL (1.4-4.0); Lymphocytes % 24.5 % (21.3-54.2); Mean Corpuscular HGB Conc 32.8 GM/DL (32-36); Mean Corpuscular Volume 86.7 FL (87-102); Mean Platelet Volume 10.2 FL (9.6-12.0); Monocytes % 7.2 % (1.7-12.7); Neutrophils % 67.1 % (38.7-73.9); Platelet Count 296 T/CUMM (130-400); Red Blood Count 3.09 MC/CUMM (3.8-5.5); Red Cell Distribution Width 14.5 % (9.3-17.3); White Blood Count 8.6 T/CUMM (4-12)
[2021-03-01] MEDS: POTASSIUM PHOSPHATE IV SCH (13:29)
[2021-03-01] MEDS: SODIUM CHLORIDE 0.45% IV SCH (13:29)
[2021-03-01 13:54] LABS: Ferritin 271.4 ng/mL (8-252)
[2021-03-01] MEDS: MULTIVITAMIN (CENTRUM) TABLET PO SCH (13:56)
[2021-03-01] MEDS: DOCUSATE SODIUM 100 MG CAPSULE PO SCH ×2 (13:56→20:58)
[2021-03-01] MEDS: INSULIN REGULAR 100 UNIT/ML SUBCUT SCH ×3 (13:56→20:58)
[2021-03-01] MEDS: carvediloL 25 MG TABLET PO SCH ×2 (13:57→20:58)
[2021-03-01] MEDS: amLODIPine 10 MG TABLET PO SCH (13:57)
[2021-03-01] MEDS: ROSUVASTATIN 20 MG TABLET PO SCH (13:57)
[2021-03-01] MEDS: SODIUM BICARBONATE 650 MG TABLET PO SCH ×3 (13:58→20:58)
[2021-03-01] MEDS: PANTOPRAZOLE 40 MG TABLET PO SCH ×2 (13:58→20:58)
[2021-03-01 14:04] LABS: Calcium 6.9 MG/DL (8.5-10.1)
[2021-03-01 14:05] LABS: Osmolality,Calculated 286.4 MOS/KG (273-304); Potassium 3.3 MMOL/L (3.5-5.1)
[2021-03-01] MEDS: HEPARIN DRIP 25,000 UNITS/500 ML PREMIX IV SCH (20:59)
[2021-03-01] MEDS: INSULIN GLARGINE 100 UNIT/ML SUBCUT SCH (20:59)
[2021-03-02] MEDS: POTASSIUM PHOSPHATE IV SCH ×2 (00:55→16:50)
[2021-03-02] MEDS: SODIUM CHLORIDE 0.45% IV SCH ×2 (00:55→16:50)
[2021-03-02 05:17] LABS: Basophils % 0.2 % (0.0-0.8); Eosinophils # 0.1 10*3/uL (0.0-0.87); Eosinophils % 0.4 % (0.00-10.9); Hematocrit 28.3 VOL% (35.7-47.0); Hemoglobin 9.2 GM/DL (12.0-16.0); Immature Granulocytes % 0.4 %; Immature Granulocytes Absolute 0.05 #; Lymphocytes # 2.5 10*3/uL (1.4-4.0); Lymphocytes % 22.4 % (21.3-54.2); Mean Corpuscular HGB Conc 32.5 GM/DL (32-36); Mean Corpuscular Volume 88.7 FL (87-102); Monocytes % 7.4 % (1.7-12.7); Neutrophils % 69.2 % (38.7-73.9); Platelet Count 299 T/CUMM (130-400); Red Blood Count 3.19 MC/CUMM (3.8-5.5); Red Cell Distribution Width 14.4 % (9.3-17.3); White Blood Count 11.2 T/CUMM (4-12)
[2021-03-02 06:16] LABS: Calcium 6.9 MG/DL (8.5-10.1); Osmolality,Calculated 279.7 MOS/KG (273-304); Potassium 4.2 MMOL/L (3.5-5.1)
[2021-03-02] MEDS ORDERED: propofoL 200 MG/20 ML VIAL IV ONE (09:19)
[2021-03-02] MEDS ORDERED: PHENYLEPHRINE 1 MG/10 ML SYRINGE IV ONE (09:19)
[2021-03-02] MEDS ORDERED: LIDOCAINE 2% 5 ML VIAL ONE (09:19)
[2021-03-02] MEDS: carvediloL 25 MG TABLET PO SCH ×2 (11:51→20:10)
[2021-03-02] MEDS: PANTOPRAZOLE 40 MG TABLET PO SCH ×2 (11:51→20:10)
[2021-03-02] MEDS: DOCUSATE SODIUM 100 MG CAPSULE PO SCH ×2 (11:51→20:10)
[2021-03-02] MEDS: ROSUVASTATIN 20 MG TABLET PO SCH (11:51)
[2021-03-02] MEDS: calcitrioL 0.25 MCG CAPSULE PO SCH (11:51)
[2021-03-02] MEDS: MULTIVITAMIN (CENTRUM) TABLET PO SCH (11:52)
[2021-03-02] MEDS: amLODIPine 10 MG TABLET PO SCH (11:52)
[2021-03-02] MEDS: SODIUM BICARBONATE 650 MG TABLET PO SCH ×3 (11:53→20:10)
[2021-03-02] MEDS: INSULIN REGULAR 100 UNIT/ML SUBCUT SCH ×4 (11:53→20:13)
[2021-03-02 16:49] LABS: Pt O2 Delivery Device Room Air
[2021-03-02] MEDS: SODIUM BICARB INJ 100 MEQ in DEXTROSE 5% 1,000 ML IV SCH (16:53)
[2021-03-02] MEDS: hydrALAZINE 25 MG TABLET PO SCH ×2 (16:53→20:10)
[2021-03-02] MEDS: SODIUM CHLORIDE 0.9% 1,000 ML IV SCH (16:56)
[2021-03-02 17:47] LABS: ABG HCO3 21.1 MMOL/L (20-26); ABG Oxygen Saturation 98.4 % (95-100); ABG PH 7.468 (7.35-7.45); ABG TCO2 17.5 MMOL/L (23-27)
[2021-03-02] MEDS: INSULIN GLARGINE 100 UNIT/ML SUBCUT SCH (20:13)
[2021-03-03] MEDS: SODIUM BICARB INJ 100 MEQ in DEXTROSE 5% 1,000 ML IV SCH ×2 (03:09→14:24)
[2021-03-03 04:36] LABS: ABG Base Excess 0.1 MMOL/L (-2.5-2.5); ABG HCO3 22.8 MMOL/L (20-26); ABG Oxygen Saturation 96.6 % (95-100); ABG PCO2 28.8 MM HG (35-48); ABG PH 7.516 (7.35-7.45); ABG PO2 87.6 MM HG (80-95); ABG TCO2 23.7 MMOL/L (23-27); Allen Test Positive; Pt O2 Delivery Device Room Air
[2021-03-03 05:51] LABS: Basophils % 0.2 % (0.0-0.8); Eosinophils % 0.2 % (0.00-10.9); Hematocrit 24.5 VOL% (35.7-47.0); Hemoglobin 8.2 GM/DL (12.0-16.0); Immature Granulocytes % 0.7 %; Immature Granulocytes Absolute 0.07 #; Lymphocytes # 1.8 10*3/uL (1.4-4.0); Mean Corpuscular HGB Conc 33.5 GM/DL (32-36); Mean Corpuscular Volume 86.3 FL (87-102); Mean Platelet Volume 9.6 FL (9.6-12.0); Monocytes % 8.4 % (1.7-12.7); Neutrophils % 73.5 % (38.7-73.9); Platelet Count 265 T/CUMM (130-400); Red Blood Count 2.84 MC/CUMM (3.8-5.5); Red Cell Distribution Width 14.3 % (9.3-17.3); White Blood Count 10.6 T/CUMM (4-12)
[2021-03-03 06:24] LABS: Albumin 1.7 G/DL (3.4-5.0); Bilirubin,Total 0.5 MG/DL (0.20-1.00); Calcium 7.2 MG/DL (8.5-10.1); Osmolality,Calculated 285.8 MOS/KG (273-304); Potassium 3.6 MMOL/L (3.5-5.1); Total Protein 4.7 G/DL (6.4-8.2)
[2021-03-03] MEDS: ROSUVASTATIN 20 MG TABLET PO SCH (09:48)
[2021-03-03] MEDS: INSULIN REGULAR 100 UNIT/ML SUBCUT SCH ×4 (09:48→20:23)
[2021-03-03] MEDS: amLODIPine 10 MG TABLET PO SCH (09:48)
[2021-03-03] MEDS: calcitrioL 0.25 MCG CAPSULE PO SCH (09:49)
[2021-03-03] MEDS: hydrALAZINE 25 MG TABLET PO SCH ×3 (09:49→20:23)
[2021-03-03] MEDS: carvediloL 25 MG TABLET PO SCH ×2 (09:49→20:23)
[2021-03-03] MEDS: DOCUSATE SODIUM 100 MG CAPSULE PO SCH ×2 (09:49→20:23)
[2021-03-03] MEDS: MULTIVITAMIN (CENTRUM) TABLET PO SCH (09:49)
[2021-03-03] MEDS: PANTOPRAZOLE 40 MG TABLET PO SCH ×2 (09:49→20:23)
[2021-03-03] MEDS: SODIUM BICARBONATE 650 MG TABLET PO SCH ×3 (09:50→20:23)
[2021-03-03 12:34] LABS: Hematocrit 23.3 VOL% (35.7-47.0); Hemoglobin 7.7 GM/DL (12.0-16.0)
[2021-03-03] MEDS ORDERED: SODIUM CHLORIDE 0.9% 1,000 ML IV PRN (15:32)
[2021-03-03] MEDS: INSULIN GLARGINE 100 UNIT/ML SUBCUT SCH (20:23)
[2021-03-03 21:08] LABS: Hematocrit 32.5 VOL% (35.7-47.0); Hemoglobin 10.9 GM/DL (12.0-16.0)
[2021-03-04] MEDS: SODIUM BICARB INJ 100 MEQ in DEXTROSE 5% 1,000 ML IV SCH ×2 (02:45→14:56)
[2021-03-04 05:46] LABS: Basophils % 0.3 % (0.0-0.8); Eosinophils % 0.3 % (0.00-10.9); Hematocrit 31.4 VOL% (35.7-47.0); Hemoglobin 10.4 GM/DL (12.0-16.0); Immature Granulocytes % 0.4 %; Immature Granulocytes Absolute 0.05 #; Lymphocytes # 2.2 10*3/uL (1.4-4.0); Lymphocytes % 18.6 % (21.3-54.2); Mean Corpuscular HGB Conc 33.1 GM/DL (32-36); Mean Corpuscular Volume 88.2 FL (87-102); Mean Platelet Volume 9.7 FL (9.6-12.0); Monocytes % 9.8 % (1.7-12.7); Neutrophils % 70.6 % (38.7-73.9); Platelet Count 245 T/CUMM (130-400); Red Blood Count 3.56 MC/CUMM (3.8-5.5); Red Cell Distribution Width 14.3 % (9.3-17.3); White Blood Count 11.6 T/CUMM (4-12)
[2021-03-04] MEDS: carvediloL 25 MG TABLET PO SCH ×2 (09:47→21:29)
[2021-03-04] MEDS: ROSUVASTATIN 20 MG TABLET PO SCH (09:47)
[2021-03-04] MEDS: hydrALAZINE 25 MG TABLET PO SCH ×3 (09:47→21:29)
[2021-03-04] MEDS: amLODIPine 10 MG TABLET PO SCH (09:47)
[2021-03-04] MEDS: SODIUM BICARBONATE 650 MG TABLET PO SCH ×3 (09:47→21:29)
[2021-03-04] MEDS: calcitrioL 0.25 MCG CAPSULE PO SCH (09:47)
[2021-03-04] MEDS: PANTOPRAZOLE 40 MG TABLET PO SCH ×2 (09:47→21:29)
[2021-03-04] MEDS: MULTIVITAMIN (CENTRUM) TABLET PO SCH (09:47)
[2021-03-04] MEDS: INSULIN REGULAR 100 UNIT/ML SUBCUT SCH ×4 (09:48→21:31)
[2021-03-04] MEDS: DOCUSATE SODIUM 100 MG CAPSULE PO SCH ×2 (09:58→21:29)
[2021-03-04] MEDS: POTASSIUM PHOSPHATE IV SCH ×2 (12:40→12:41)
[2021-03-04] MEDS: SODIUM CHLORIDE 0.45% IV SCH ×2 (12:40→12:41)
[2021-03-04] MEDS: SODIUM CHLORIDE 0.9% 1,000 ML IV SCH (12:41)
[2021-03-04 13:41] LABS: Hematocrit 30.1 VOL% (35.7-47.0); Hemoglobin 10.1 GM/DL (12.0-16.0)
[2021-03-04 13:58] LABS: Calcium 6.9 MG/DL (8.5-10.1); Osmolality,Calculated 283.4 MOS/KG (273-304); Potassium 3.6 MMOL/L (3.5-5.1)
[2021-03-04] MEDS: HEPARIN DRIP 25,000 UNITS/500 ML PREMIX IV SCH ×2 (15:13→17:07)
[2021-03-04] MEDS: INSULIN GLARGINE 100 UNIT/ML SUBCUT SCH (21:30)
[2021-03-04 22:01] LABS: Hematocrit 32.1 VOL% (35.7-47.0); Hemoglobin 10.7 GM/DL (12.0-16.0)
[2021-03-05 06:45] LABS: Basophils % 0.3 % (0.0-0.8); Eosinophils % 0.4 % (0.00-10.9); Hemoglobin 9.9 GM/DL (12.0-16.0); Immature Granulocytes % 0.4 %; Immature Granulocytes Absolute 0.04 #; Lymphocytes # 1.9 10*3/uL (1.4-4.0); Lymphocytes % 19.7 % (21.3-54.2); Mean Corpuscular Volume 90.6 FL (87-102); Mean Platelet Volume 10.4 FL (9.6-12.0); Monocytes % 9.3 % (1.7-12.7); Neutrophils % 69.9 % (38.7-73.9); Platelet Count 228 T/CUMM (130-400); Red Blood Count 3.31 MC/CUMM (3.8-5.5); Red Cell Distribution Width 13.9 % (9.3-17.3); White Blood Count 9.5 T/CUMM (4-12)
[2021-03-05 07:06] LABS: Calcium 7.4 MG/DL (8.5-10.1); Osmolality,Calculated 280.5 MOS/KG (273-304); Potassium 3.6 MMOL/L (3.5-5.1)
[2021-03-05] MEDS: INSULIN REGULAR 100 UNIT/ML SUBCUT SCH ×2 (08:37→12:26)
[2021-03-05] MEDS: MULTIVITAMIN (CENTRUM) TABLET PO SCH (09:05)
[2021-03-05] MEDS: amLODIPine 10 MG TABLET PO SCH (09:05)
[2021-03-05] MEDS: SODIUM BICARBONATE 650 MG TABLET PO SCH (09:05)
[2021-03-05] MEDS: calcitrioL 0.25 MCG CAPSULE PO SCH (09:05)
[2021-03-05] MEDS: ROSUVASTATIN 20 MG TABLET PO SCH (09:05)
[2021-03-05] MEDS: carvediloL 25 MG TABLET PO SCH (09:05)
[2021-03-05] MEDS: PANTOPRAZOLE 40 MG TABLET PO SCH (09:05)
[2021-03-05] MEDS: hydrALAZINE 25 MG TABLET PO SCH (09:06)
[2021-03-05] MEDS: DOCUSATE SODIUM 100 MG CAPSULE PO SCH (09:06)
[2021-03-05 09:34] LABS: Anti-Nuclear Antibody Pattern Homogeneous
[2021-03-05 12:46] VITALS: BP 129/93
== END 2021-03-05 15:10 | disposition home or self-care (01) | DRG 299 ==
LOC: N.TELEN 23:04 → N.TELENOUT 23:04 → EDSTATUS 23:05 → SUATTDRO 02-27 00:30
PROVIDERS: ADMIT Internal Medicine; ATTEND Internal Medicine